=== PATIENT | male | born 1970 | race Two or more races ===

== ENCOUNTER 2023-10-21 13:42 | Outpatient (REF) | payer SELFPAY ==
[2023-10-21 17:20] LABS: Alanine Aminotransferase 13 U/L (0-40); Alkaline Phosphatase 66 U/L (39-117); Anion Gap 12 (12-20); Aspartate Amino Transferase 18 U/L (5-37); Bilirubin Direct 0.2 mg/dL (0.0-0.5); Bilirubin Total 0.6 mg/dL (0.0-1.0); Blood Urea Nitrogen 11 mg/dL (9-16); Calcium 9.9 mg/dL (8.4-10.2); Carbon Dioxide 25 mmol/L (22-29); Chloride 107 mmol/L (96-108); Cholesterol 147 mg/dL (<200); Estimated Glomerular Filt Rate > 60; Glucose Random 94 mg/dL (60-115); HDL Cholesterol 40 mg/dL (>40); LDL Cholesterol Calculated 87 mg/dL (<100); Potassium 4.5 mmol/L (3.3-5.1); Sodium 139 mmol/L (135-145); Total Protein 6.8 g/dL (6.5-8.0); Triglycerides 104 mg/dL (<150)
[2023-10-22 04:36] LABS: HBS Num1 2.48 mIU/mL (0-7.99); HBc Num1 0.09 S/CO (0.00-0.79); HBsAGNum1 1.16 S/CO (0.00-0.99); Hepatitis B Core Antibody Nonreactive (Nonreactive); ~HepC Num1 0.08 S/CO (0.00-0.79); ~Hepatitis B Surface Antibody NONREACTIVE (Nonreactive); ~Hepatitis C Antibody Nonreactive (Nonreactive)
[2023-10-22 04:39] LABS: Hepatitis A Antibody IgG REACTIVE (Nonreactive); ~Hepatitis A Antibody IgG 12.48 S/CO (0.00-0.99)
[2023-10-22 04:52] LABS: HIV Num 1 1.41 S/CO (0.00-0.99)
[2023-10-22 05:52] LABS: HBsAGNum2 Nonreactive; HBsAGNum3 Nonreactive; HIV AB/AG Nonreactive (Nonreactive); HIV Num 2 0.04 S/CO; HIV Num 3 0.05 S/CO; Hepatitis B Surface Antigen NEGATIVE (Negative)
[2023-10-24 06:39] LABS: TS Negative Control Passed; TS Panel A 0; TS Panel B 0; TS Positive Control Passed; TSpotTB Negative (Negative)
== END 2023-10-21 13:43 | disposition home or self-care (01) ==
LOC: HO.HHCL 13:42
PROVIDERS: Referring Provider Emergency Medicine; Visit Provider General Practice
DX: Z00.00 Encounter for general adult medical examination without abnormal findings (principal); F11.20 Opioid dependence, uncomplicated
CPT/HCPCS: 36415; 80053; 80061; 80076; 82248; 86481; 86592; 86704; 86706; 86708; 86803; 87340; 87389

== ENCOUNTER 2024-03-31 12:50 | Emergency (ER) | payer MEDICAID, SELFPAY ==
[2024-03-31 13:07] VITALS: BP 135/89; PULSE 76; O2SAT 97
[2024-03-31 13:08] VITALS: BP 137/83; PULSE 71; RESP 20; TEMP 36.3; O2SAT 98; BMI 27.0
--- NOTE | 2024-03-31 13:08 | ED.GENADULT ---
HPI - General Adult General Chief complaint: General Medical Stated complaint: inhaler not working Time Seen by Provider: 03/31/24 13:13 Source: patient, EMS and RN notes reviewed Mode of arrival: EMS Limitations: no limitations History of Present Illness ED Provider: Ena Cruz PA-C HPI narrative: This is a 53-year-old male, with a history of asthma, who presents emergency department for evaluation of inhaler not working. Patient states that while he was walking he was attempting to use his inhaler in his hand inhaler was not working as his inhaler was frozen. He went into a store and he was able to use his inhaler however the ambulance was called. States that he took the ambulance as he needed to have a ride. He states that he is not having any shortness of breath, chest pain, cough, dizziness, blurred vision, abdominal pain, nausea, vomiting or diarrhea. He was feeling well. No other complaints or concerns at this time. MD complaint: Malfunctioned Inhaler Relieving factors: none Exacerbating factors: none Associated symptoms: denies other symptoms Treatments prior to arrival: none Related Data Allergies Allergy/AdvReac Type Severity Reaction Status Date / Time No Known Allergies Allergy Verified 03/31/24 13:12 Review of Systems Review of Systems: Yes all other systems are reviewed and are negative [facility] Past Medical History Attestation statement: The following information was validated with the patient. Social History Social History Advance Directives: No Advance Directives Information Provided: No Do you have a plan to hurt others: No Plan Physical Exam ED Vital Signs: Vital Signs - 24 hr 03/31/24 13:08 03/31/24 13:19 Temperature 97.4 F 97.4 F Pulse Rate 71 71 Respiratory Rate 20 20 Blood Pressure 137/83 137/83 Pulse Oximetry 98 98 Oxygen Delivery Method Room Air Room Air BMI result Body Mass Index 27.0 Const Other: General: Awake, alert, and oriented X3. No acute distress. HEENT: Normal inspection CVS: Normal heart rate and rhythm. Pulses normal. Respiratory: No respiratory distress. Lungs are clear to auscultation bilaterally. Skin: Warm, dry, no rashes noted to exposed skin. Normal skin color. Normal skin turgor. Extremities: Normal to inspection Neuro: Oriented X 3. No motor deficit. No sensory deficit. Medical Decision Making Medical Decision Making [facility] Narrative: This is a 53-year-old male who presents emergency department with complaints of malfunction inhaler. Patient states that while he was walking he felt short of breath, and attempted to use his inhaler however states that the it was frozen. Lungs are clear to auscultation bilaterally, vital signs within normal limits. He has no current complaints. He was feeling well and would like to be discharged home. Given that he is feeling well, has no current shortness for breath, and that his reason for taking the ambulance was for a ride, and his inhaler was frozen, no indication for any further workup. Given strict return precautions. He understands and agrees with plan. Patient stable for discharge Differential Diagnosis Differential Diagnoses: The differential diagnosis associated with the presentation includes Asthma exacerbation, URI, medication refill Discharge Plan Discharge Clinical Impression: Asthma Patient Disposition: Home, Self-Care Instructions: Asthma (ED) Additional Instructions: You were seen in the emergency department as your inhaler was not working. Your vital signs were normal, your lungs are clear. You have no current complaints. Please follow-up with your primary care physician. If any new or worsening symptoms occur including but not limited to chest pain or shortness for breath, please seek emergent care. Interventions: ED Discharge Assessment Last Done: 03/31/24 13:19 Discharge Date/Time: 03/31/24 13:26 Print Language: Citizen [place]
[2024-03-31 13:19] VITALS: BP 137/83; PULSE 71; RESP 20; TEMP 36.3; O2SAT 98
--- OUTSIDE RECORDS SUMMARY | 2024-03-31 14:16 | XMS_ITS | Encounter Summary ---
Author Organization [employer] Address [address] [place] [address] Care Team Providers Care Dependency Program Director Name Role Phone Ely Sánchez MD Primary Care Provider [phone] Encounter Details Date Type Department Care Team (Latest Contact Info) Description 03/23/2024 Travel Social History Tobacco Use Types Packs/Day Years Used Date Smoking Tobacco: Former Cigarettes Passive Smoke Exposure: Current Smokeless Tobacco: Never Alcohol Use Standard Drinks/Week Comments Never 0 (1 standard drink = 0.6 oz pur e alcohol) Depression Answer Date Recorded Patient Health Questionnaire-9 Score 21 10/21/2023 Patient Health Questionnaire-9 Score 21 10/21/2023 Last PHQ-9: Questionnaire Data Not on file 0 10/21/2023 Housing Stability Answer Date Recorded What is your housing situation today? I have [employer] 10/02/[address] you li ve. Do you have problems with any of the following? None of the above 10/02/2023 Food Insecurity Answer Date Recorded Within the past 12 months, y ou worried that your food would run out before you got money to buy more: Never True 10/02/2023 Within the past 12 months,th e food you bought just didn't last and you didn't have enough money to get more: Never True Transportation Answer Date Recorded In the past 12 months, has l ack of transportation kept you from medical appts, meetings, work or from getting things needed for daily living? No 10/02/2023 Utilities Answer Date Recorded In the past 12 months, has t he electric, gas, oil or water company threatened to shut off services in your home? No 10/02/2023 Depression Answer Date Recorded Patient Health Questionnaire-2 Score 5 10/21/2023 Internet Access Answer Date Recorded Internet Access Q1 I am not sure 10/21/2023 Internet Access Q2 Not on file 10/21/2023 Sex and Gender Information Value Date Recorded Sex Assigned at Male 07/18/2023 3:40 PM EDT Legal Sex Male 1:39 PM EDT Gender Identity Male 07/18/2023 3:40 PM EDT Sexual Orientation Straight 07/18/2023 3: 41 PM EDT documented as of this encounter Plan of Treatment Upcoming Encounters Date Type Department Care Team (Late st Contact Info) Description 04/20/2024 1:00 PM EDT Office Visit [facility] [address] [place] [address] Jairo Valenzuela MD [address] [place] [address] documented as of this encounter Visit Diagnoses Not on filedocumented in this encounter Additional Health Concerns Assessment Noted Time PHQ-9 Depression Total Score: 21 024 1:23 PM EDT documented as of this encounter Care Teams Dependency Program Director Relationship Specialty Start Date End Date Ely Sánchez MD [address] [place] [address] PCP - General Family Medicine 10/21/23 documented as of this encounter
--- OUTSIDE RECORDS SUMMARY | 2024-03-31 14:16 | XMS_ITS | Encounter Summary ---
Author Organization [employer] Address [address] [facility] 7t [place] [address] Care Team Providers Care Market Developer Name Role Phone Ely Sánchez MD Primary Care Provider [phone] Reason for Visit * Reason Comments Pain With Bowel movements Encounter Details Date Type Department Care Team ([facility] st Contact Info) Description 03/27/2024 1:30 PM EST Office Visit [facility] MED[facility]INE [address] [place], [place] [id number] Ely Sánchez MD [address] [place] [address] Social History Tobacco Use Types Packs/Day Years Used Date Smoking Tobacco: Former Cigarettes Passive Smoke Exposure: Current Smokeless Tobacco: Never Tobacco Cessation:Counseling Given: Not Answered Alcohol Use Standard Drinks/Week Comments Never 0 (1 standard drink = 0.6 oz pur e alcohol) Depression Answer Date Recorded Patient Health Questionnaire-9 Score 10/21/2023 Patient Health Questionnaire-9 Score 10/21/2023 Last PHQ-9: Questionnaire Data Not on [...] PM EDT documented as of this encounter Last Filed Vital Signs Vital Sign Reading Time Taken Comments Blood Pressure 146/79 03/27/2024 1:23 PM EST Pulse 73 03/27/2024 1:23 PM EST Temperature 36.8 ??C (98.2 ??F) 03/27/2024 1:23 PM ES T Respiratory Rate 16 03/27/2024 1:23 PM EST Oxygen Saturation 97% 03/27/2024 1:23 PM EST Inhaled Oxygen Concentration - - Weight 89.4 kg (197 lb) 03/27/2024 1:23 PM EST Height 177.8 cm (5' 10 ) 03/27/2024 1:23 PM EST Body Mass Index 28.27 03/27/2024 1:23 PM EST documented in this encounter Plan of Treatment Upcoming Encounters Date Type Department Care Team (Late st Contact Info) Description 04/20/2024 1:00 PM EDT Office Visit [facility] [address] [place] [address] Jairo Valenzuela MD [address] [place] [address] documented as of this encounter Visit Diagnoses Not on filedocumented in this encounter Additional Health Concerns Assessment Noted Time PHQ-9 Depression Total Score: 21 024 1:23 PM EDT documented as of this encounter Care Teams Market Developer Relationship Specialty Start Date End Date Ely Sánchez MD [address] [place] [id number] PCP - General Family Medicine 10/21/23 documented as of this encounter
--- OUTSIDE RECORDS SUMMARY | 2024-03-31 14:16 | XMS_ITS | Encounter Summary ---
Author Organization [employer] Address [address] [facility] 7t [place] [address] Care Team Providers Care Program Advocate Name Role Phone Ely Sánchez MD Primary Care Provider [phone] Reason for Visit * Reason Onset Date Comments Telephone Call 03/24/2024 Encounter Details Date Type Department Care Team ([facility] st Contact Info) Description 03/24/2024 Telephone [facility] MEDICINE [address] [place], [place] [phone] Ely Sánchez MD [address] [place] [address] Telephone Call Social History Tobacco Use Types Packs/Day Years [...] PM EDT documented as of this encounter Miscellaneous Notes * Telephone Encounter - Shania Francisco RN - 03/24/2024 10:54 AM EST Call returned to patient. Logan reports he would like to schedule an appt with PCP Dr. Sánchez as he is having pain with bowel movements. He reports he had a colonoscopy several years ago, where a few polyps were removed. He thinks he is due to have another colonoscopy. Appt scheduled with PCP 03/27/2024 at 1:30 PM. Patient verbalizes understanding and agreement with plan of care at thi [place] [id number] Chi * Telephone Encounter - Caro Orellana - 03/24/2024 9:17 AM EST Pt walked in requesting to speak with pcp as he is concerned he may have prostate cancer and would like to discuss with pcp. Patient states he had previously had polups removed but he feels them growing back and is becoming more uncomfortable day to day. [phone] pts cell documented in this encounter Plan of Treatment Upcoming Encounters Date Type Department Care Team (Late st Contact Info) Description 04/20/2024 1:00 PM EDT Office Visit [facility] MEDICINE [address] [place] [address] Jairo Valenzuela MD [address] [place] [address] documented as of this encounter Visit Diagnoses Not on filedocumented in this encounter Additional Health Concerns Assessment Noted Time PHQ-9 Depression Total Score: 21 024 1:23 PM EDT documented as of this encounter Care Teams Program Advocate Relationship Specialty Start Date End Date Ely Sánchez MD [address] [place] [address] PCP - General Family Medicine 10/21/23 documented as of this encounter
--- OUTSIDE RECORDS SUMMARY | 2024-03-31 14:16 | XMS_ITS | Encounter Summary ---
Author Organization [employer] Address [address] [facility] [address] 7t [place] [address] Care Team Providers Care Metal Or Wood Blocker Name Role Phone Ely Sánchez MD Primary Care Provider [phone] Encounter Details Date Type Department Care Team (Late st Contact Info) Description 12/02/2023 Orders Only [facility] MED[facility] [address] [place] [address] Katrin Lieberman, RN Social History Tobacco Use Types Packs/Day Years [...] Description 04/20/2024 1:00 PM EDT Office Visit [facility] MED[facility] [address] [place] [address] Jairo Valenzuela MD [address] [place] [address] documented as of this encounter Visit Diagnoses Not on filedocumented in this encounter Additional Health Concerns Assessment Noted Time PHQ-9 Depression Total Score: 21 024 1:23 PM EDT documented as of this encounter Care Teams Metal Or Wood Blocker Relationship Specialty Start Date End Date Ely Sánchez MD [address] [place] [address] PCP - General Family Medicine 10/21/23 documented as of this encounter
--- OUTSIDE RECORDS SUMMARY | 2024-03-31 14:16 | XMS_ITS | Encounter Summary ---
Author Organization [employer] Address [address] Floor [place] [id number] Care Team Providers Care Director Of Anesthesia Services Name Role Phone Ely Sánchez MD Primary Care Provider [phone] Reason for Visit * Reason Comments OBAT Encounter Details Date Type Department Care Team (Latest Contact Info) Description 03/23/2024 1:00 PM EST Office Visit [facility] [address] [place] [address] Jairo Valenzuela MD [address] [place] [address] Uncomplicated opioid dependence (CMS/HCC) (Primary Dx) Social History Tobacco Use Types Packs/Day Years [...] PM EDT documented as of this encounter Progress Notes * Jairo Valenzuela MD - 03/23/2024 1:00 PM EST Subjective Patient ID: Logan Solorzano is a 53 y.o. male. HPI Patient on current Suboxone dose of 8/2 mg (decreased on 09/25/23 from 16/4) on a 4 week schedule. Patient has been in the program for 6 months. Induction date: 09/02/23. LFTs done 10/21/23. Patient actively enrolled in behavioral health services, therapist Nalini. SINDHU CHAHAL reviewed by provider. PCP: Dr. Sánchez, last seen 10/21/23 Smoking status: current Logan is here with his sister. He is in [employer] [facility], and enjoys the program very much,especially playing [employer]. He stated smoking again, 3 cigarettes/day, has nicotine patches at home. Discussed Sublocade; prefers to stay on Suboxone at current dose. Has mild constipation, used Colace and senna without relief. Tried bisacodyl, which was effective. Today prescribed bisacodyl. Lives with sister. Not employed. The following portions of the chart were reviewed this encounter and updated as appropriate: Review of Systems Constitutional: Negative for fever. Respiratory: Negative for shortness of breath. Cardiovascular: Negative for chest pain. Gastrointestinal: Negative for abdominal pain. Skin: Negative for rash. Neurological: Negative for headaches. Objective Physical Exam Vitals and nursing note reviewed. Constitutional: Appearance: Normal appearance. HENT: Head: Normocephalic and atraumatic. Nose: Nose normal. Eyes: Conjunctiva/sclera: Conjunctivae normal. Pupils: Pupils are equal, round, and reactive to light. Pulmonary: Effort: Pulmonary effort is normal. Skin: General: Skin is warm and dry. Neurological: Mental Status: He is alert. Gait: Gait is intact. Psychiatric: Mood and Affect: Mood and affect normal. Behavior: Behavior normal. Procedures Assessment/Plan Diagnoses and all orders for this visit: Uncomplicated opioid dependence (CMS/HCC) Recovery support, harm reduction (including Narcan) and behavioral health attendance reviewed. Continue Suboxone 8/2 mg; will increase visit interval to 8 week schedule if doing well at next visit. Prescribed bisacodyl. documented in this encounter Plan of Treatment Upcoming Encounters Date Type Department Care Team (Late st Contact Info) Description 04/20/2024 1:00 PM EDT Office Visit [facility] [address] [place] [address] Jairo Valenzuela MD [address] [place] [address] documented as of this encounter Procedures Procedure Name Priority Date/Time Associated Diagnosis Comments POCT DAVID-14 URINE DRUG SCREEN Routine 03/23/2024 1:17 PM EST Uncomplicated opioid dependence (CMS/HCC) documented in this encounter Results * POCT DAVID-14 Urine Drug Screen (03/23/2024 1:17 PM EST) THC Negative Cocaine Screen, Urine Negative Opiate Screen, Urine Negative Methamphetamine Screen Urine Negative Amphetamine Screen, Urine Negative Benzodiazepines Screen, Urine Negative Barbiturate Screen, Urine Negative Methadone Screen, Urine Negative Buprenophine Screen, Urine Positive TCA, Urine Negative MDMA Urine Negative ng/mL Oxycodone Screen, Urine Negative Phencyclidine (PCP), Urine Negative Propoxyphene, Urine Negative Fentanyl, Urine Negative Urine Urine specimen obtained by clean catch procedure / Unknown 03/23/2024 1:17 PM EST Jairo Valenzuela MD POINT OF CARE TEST ENTER/EDIT OR DERABLES Final Result documented in this encounter Visit Diagnoses Diagnosis Uncomplicated opioid dependence (CMS/HCC)- Primary documented in this encounter Additional Health Concerns Assessment Noted Time PHQ-9 Depression Total Score: 21 024 1:23 PM EDT documented as of this encounter Care Teams Director Of Anesthesia Services Relationship Specialty Start Date End Date Ely Sánchez MD [address] [place] [address] PCP - General Family Medicine 10/21/23 documented as of this encounter
--- OUTSIDE RECORDS SUMMARY | 2024-03-31 14:16 | XMS_ITS | Encounter Summary ---
Author Organization [employer] Address [address] [place] [address] Care Team Providers Care Import/Export Freight Forwarder Name Role Phone Ely Sánchze MD Primary Care Provider [phone] Encounter Details Date Type Department Care Team (Latest Contact Info) Description 03/27/2024 Travel Social History Tobacco Use Types Packs/Day [...] Description 04/20/2024 1:00 PM EDT Office Visit [facility] [address] [place] [address] Jairo Valenzuela MD [address] [place] [address] documented as of this encounter Visit Diagnoses Not on filedocumented in this encounter Additional Health Concerns Assessment Noted Time PHQ-9 Depression Total Score: 21 024 1:23 PM EDT documented as of this encounter Care Teams Import/Export Freight Forwarder Relationship Specialty Start Date End Date Ely Sánchez MD [address] [place] [address] PCP - General Family Medicine 10/21/23 documented as of this encounter
--- OUTSIDE RECORDS SUMMARY | 2024-03-31 14:16 | XMS_ITS | Encounter Summary ---
Author Organization [employer] Address [address] [place] [address] Care Team Providers Care Manufacturing Team Leader Name Role Phone Ely Sánchez MD Primary Care Provider [phone] Encounter Details Date Type Department Care Team (Late st Contact Info) Description 12/02/2023 Orders Only [facility] MEDICINE [address] [place] [address] Katrin Lieberman, RN Encounter for immunization Social History Tobacco Use Types Packs/Day Years [...] Description 04/20/2024 1:00 PM EDT Office Visit [facility] MED[facility] [address] [place] [address] Jairo Valenzuela MD [address] [place] [address] documented as of this encounter Visit Diagnoses Diagnosis Encounter for immunization documented in this encounter Additional Health Concerns Assessment Noted Time PHQ-9 Depression Total Score: 21 024 1:23 PM EDT documented as of this encounter Care Teams Manufacturing Team Leader Relationship Specialty Start Date End Date Ely Sánchez MD [address] [place] [id number] PCP - General Family Medicine 10/21/23 documented as of this encounter
--- OUTSIDE RECORDS SUMMARY | 2024-03-31 14:16 | XMS_ITS | Encounter Summary ---
Author Organization [employer] Address [address] [place] [address] Care Team Providers Care Mortgage Or Loan Underwriter Name Role Phone Ely Sánchez MD Primary Care Provider [phone] Reason for Visit * Reason Onset Date Comments Med Refill 03/17/2024 Encounter Details Date Type Department Care Team (Late st Contact Info) Description 03/17/2024 Refill [facility] [address] [place] [address] Katrin Lieberman RN Uncomplicated opioid dependence (CMS/HCC) Social History Tobacco Use Types Packs/Day Years [...] Description 04/20/2024 1:00 PM EDT Office Visit [facility] [address] [place] [address] Jairo Valenzuela MD [address] [place] [address] documented as of this encounter Visit Diagnoses Diagnosis Uncomplicated opioid dependence (CMS/HCC) documented in this encounter Additional Health Concerns Assessment Noted Time PHQ-9 Depression Total Score: 21 024 1:23 PM EDT documented as of this encounter Care Teams Mortgage Or Loan Underwriter Relationship Specialty Start Date End Date Ely Sánchez MD [address] [place] [address] PCP - General Family Medicine 10/21/23 documented as of this encounter
--- OUTSIDE RECORDS SUMMARY | 2024-03-31 14:16 | XMS_ITS | Clinical Summary ---
Author Organization [employer] Address [address] [facility] [place] [address] Care Team Providers Care Real Estate Marketing Coordinator Name Role Phone Ely Sánchez MD Primary Care Provider [phone] Allergies No known active allergies Medications * This document contains information received from the source organization and may not represent a complete record from that organization. naloxone (Narcan) 4 mg/0.1 mL nasal sprayIndications: Uncomplicated opioid dependence (CMS/HCC) Administer 1 spray (4 mg) into affected nostril(s) if needed for opioid reversal. May repeat every 2-3 minutes if needed, alternating nostrils, until medical assistance becomes available. 2 each 024 2024 Active nicotine polacrilex (Commit) 4 MG lozenge Dissolve 1 lozenge (4 mg) in the mouth every 2 (two) hours if needed for smoking cessation. 100 lozenge Active OLANZapine zydis (ZyPREXA) 5 MG disintegrating tablet Take 5 mg by mouth if needed in the morning and at bedtime. Active melatonin 10 MG tablet Take 10 mg by mouth at bedtime. Active lithium ER (Lithobid) 300 MG 12 hr tablet Take 600 mg by mouth at bedtime. Active hydrOXYzine HCl (Atarax) 50 MG tablet Take 50 mg by mouth if needed in the morning and at bedtime. Active gabapentin (Neurontin) 300 MG capsule Take 600 mg by mouth at bedtime. Active cholecalciferol (Vitamin D-[address]) 25 MCG (1000 UT) tablet Take 1,000 Units by mouth Once per day. Active benztropine (Cogentin) 1 MG tablet Take 1 mg by mouth at bedtime. Active ARIPiprazole (ABILIFY MAINTENA IM) Inject into the muscle. Active docusate sodium (Colace) 100 MG capsuleIndication s:Uncomplicated opioid dependence (CMS/HCC) Take 1 capsule (100 mg) by mouth if needed in the morning and at bedtime for constipation. 60 capsule 3 024 2024 Active albuterol 108 (90 Base) MCG/ACT inhalerIndication s:Mild persistent asthma, unspecified whether complicated Inhale 2 puffs every 4 (four) hours if needed for wheezing. 18 g 11 024 2024 Active Arnuity Ellipta 100 MCG/ACT inhaler INHALE 1 PUFF BY MOUTH EVERY DAY AT THE SAME TIME RINSE MOUTH AFTER USING. RINSE MOUTH AFTER USING.. DO NOT SWALLOW. 30 each 11 Active Buprenorphine HCl-Naloxone HCl (Suboxone) 8-2 MG SL filmIndications:U ncomplicated opioid dependence (CMS/HCC) Place 1 Film under the tongue Once per day for 28 days. 28 Film 025 2024 Active bisacodyl (Dulcolax) 5 MG EC tablet Take 1 tablet (5 mg) by mouth if needed each day for constipation. Do not crush, chew, or split. 30 tablet 3 025 2025 Active hydrocortisone (Anusol-HC) 2.5 % rectal cream Insert into the rectum 2 times daily. 28 g 3 Active Buprenorphine HCl-Naloxone HCl (Suboxone) 8-2 MG SL filmIndications:U ncomplicated opioid dependence (CMS/HCC) Place 1 Film under the tongue Once per day for 28 days. 28 Film 025 2024 Discontinued(R eorder (will not trigger notification to Pharmacy)) Active Problems Problem Noted Date Diagnosed Date Mild persistent asthma 02/10/2024 Assessment & Plan (02/10/2024 10:43 AM EST): Restart ICS controller BID, DWIGHT prn Return to clinic precautions Hallucinations 09/13/2023 Assessment & Plan (02/10/2024 10:43 AM EST): Controlled with injectable Abilify Verbal auditory hallucinations 09/13/2023 Opioid use disorder 09/03/2023 Assessment & Plan (02/10/2024 10:44 AM EST): On Suboxone at [facility] Provider Dr. Valenzuela Assessment & Plan (10/30/2023 5:30 AM EDT): - stage of change: Action - Utox review: bup only since he came to the program - Overdose risk: high, Hx previous overdose, depression/anxiety / schizophrenia, Hx mixed substance use - Continue current recovery support - Continue current recovery effort - Reviewed harm reduction and overdose prevention Assessment & Plan (10/02/2023 1:32 PM EDT): - stage of change: Action - Utox review: bup only since he came to the program - Overdose risk: high, Hx previous overdose, depression/anxiety / schizophrenia, Hx mixed substance use - Continue current recovery support - Continue current recovery effort - Reviewed harm reduction and overdose prevention Stimulant use disorder 09/03/2023 Severe episode of recurrent major depressive disorder, with psychotic features 09/03/2023 Generalized anxiety disorder with panic attacks 09/03/2023 Assessment & Plan (02/10/2024 10:43 AM EST): Under care of Tobacco dependence 09/02/2023 Assessment & Plan (02/10/2024 10:45 AM EST): - quit day on 10/02/23, has not smoked since then - continue NRT Assessment & Plan (10/30/2023 10:57 AM EDT): - stage of change: action - quit day on 10/02/23, has not smoked since then - continue NRT Assessment & Plan (10/02/2023 1:33 PM EDT): - stage of change: action - started using nicotine patch today Schizophrenia, unspecified 07/19/2023 Assessment & Plan (02/10/2024 10:45 AM EST): Continue Abilify injections, Teresita His sister will molded goods spot picker other psych medications today Reviewed CRISIS and ER for any SI Assessment & Plan (07/29/2023 10:21 AM EDT): During [facility] Consult Logan presenting with Altered sensory perception, Unusual thoughts, Trouble processing and with decision making, Difficulty with social interactions, and Difficulty with ADLs, visual and auditory hallucinations; for a period of 18+ mo, for all symptoms in the context of lack of MH services, lack of social support and difficulty reconnecting with the community after being released from [facility] . During today's consult, Logan reports increase of sxs due to be out of his pych medication. He previously had psychiatry services while being incarcerated in [place] and carries a diagnosis of Schizophrenia. Then, he was transferred to [place] but didn't have a treatment plan to follow for MH services. Currently staying with his sister, but family can't provide long-term housing. Due to lack of OP supports and medication, Logan is showing increase of sxs that include psychosis' sxs are highly impacting his social, occupational and other areas of functioning. More information and evaluation needed to provide official diagnosis. Pt was provided with open-ended questions, active listening and validation of emotions. PLAN: (check all that apply) Behavioral Health Integration Plan Patient Self Plan Patient to reach out to [facility] as needed Pt was self-referred to [facility] for a psychiatry evaluation with options to look into respite if spots are available. Information provided to pt. Housing insecurity 07/19/2023 Assessment & Plan (07/29/2023 10:21 AM EDT): During [facility] Consult Logan presenting with Altered sensory perception, Unusual thoughts, Trouble processing and with decision making, Difficulty with social interactions, and Difficulty with ADLs, visual and auditory hallucinations; for a period of 18+ mo, for all symptoms in the context of lack of MH services, lack of social support and difficulty reconnecting with the community after being released from [facility] . During today's consult, Logan reports increase of sxs due to be out of his pych medication. He previously had psychiatry services while being incarcerated in [place] and carries a diagnosis of Schizophrenia. Then, he was transferred to [place] but didn't have a treatment plan to follow for MH services. Currently staying with his sister, but family can't provide long-term housing. Due to lack of OP supports and medication, Logan is showing increase of sxs that include psychosis' sxs are highly impacting his social, occupational and other areas of functioning. More information and evaluation needed to provide official diagnosis. Pt was provided with open-ended questions, active listening and validation of emotions. PLAN: (check all that apply) Behavioral Health Integration Plan Patient Self Plan Patient to reach out to [facility] as needed Pt was self-referred to [facility] for a psychiatry evaluation with options to look into respite if spots are available. Information provided to pt. Encounters Date Type Department Care Team Description 03/27/2024 1:30 PM EST Office Visit [address] [address] Ely Sánchez MD 03/27/2024 Travel 03/24/[address] [address] Ely Sánchez MD Telephone Call 03/23/2024 1:00 PM EST Office Visit [address] [address] Jairo Valenzuela MD Uncomplicated opioid dependence (CMS/HCC) (Primary Dx) 03/23/2024 Travel 03/17/[address] [address] Katrin Lieberman RN Uncomplicated opioid dependence (CMS/HCC) 02/24/2024 2:00 PM EST Clinical Support [address] [address] Katrin Lieberman RN Uncomplicated opioid dependence (CMS/HCC) (Primary Dx) 02/24/2024 Travel 02/17/2024 Refill [facility] [place] [address] Katrin Lieberman RN Uncomplicated opioid dependence (CMS/HCC) 02/07/2024 2:15 PM EST Office Visit [address] [address] Ely Sánchez MD Mild persistent asthma, unspecified whether complicated (Primary Dx); Generalized anxiety disorder with panic attacks; Hallucinations; Opioid use disorder; Schizophrenia, unspecified type (CMS/HCC); Severe episode of recurrent major depressive disorder, with psychotic features (CMS/HCC); Tobacco dependence; Encounter for immunization 02/07/2024 Refill [facility] [address] [place] [address] Ely Sánchez MD 02/07/2024 Travel 01/29/2024 Patient Outreach [facility] [address] [place] [phone] Ely Sánchez MD Pre-visit Planning (SDOH screening completed on 10/21/2023) 01/27/2024 1:15 PM EST Office Visit [address] [address] Jairo Valenzuela MD Uncomplicated opioid dependence (CMS/HCC) (Primary Dx) 01/27/2024 Travel 01/20/2024 Refill [facility] [address] [place] [phone] Katrin Lieberman RN Uncomplicated opioid dependence (CMS/HCC) 01/13/2024 1:45 PM EST Office Visit [address] [address] Jairo Valenzuela MD Uncomplicated opioid dependence (CMS/HCC) (Primary Dx) 01/13/2024 Travel 01/07/2024 Refill [facility] [address] [place] [phone] Katrin Lieberman RN Uncomplicated opioid dependence (CMS/HCC) 12/30/2023 1:45 PM EST Clinical Support [address] [address] Katrin Lieberman RN Uncomplicated opioid dependence (CMS/HCC) (Primary Dx) 12/30/2023 Travel from Last 3 Months Immunizations Name Administration Dates Next Due HepB-CpG 12/02/2023,10/23/2023 11/20/2023 Influenza, seasonal, injectable, preservative fr ee 02/07/2024 Social History Tobacco Use Types Packs/Day Years [...] Orientation Straight 07/18/2023 3: 41 PM EDT Last Filed Vital Signs Vital Sign Reading [...] Mass Index 28.27 03/27/2024 1:23 PM EST Plan of Treatment Upcoming Encounters Date Type Department Care Team (Late st Contact Info) Description 04/20/2024 1:00 PM EDT Office Visit [facility] [address] [place] [address] Jairo Valenzuela MD [address] [place] [address] Health Maintenance Due Date Last Done Comments CT Colonography 1969 Colonoscopy 1969 Colorectal Cancer Screening 1969 FIT DNA/Cologuard 1969 FIT 1969 FOBT 1969 Sigmoidoscopy 1969 DTaP/Tdap/Td Vaccines (1 - Tdap) 1988 Hepatitis A Vaccines (1 of 2 - Risk 2-dose series) 1988 Pneumococcal Vaccine: 50+ Years (1 of 2 - PCV) 1988 Zoster Vaccines (1 of 2) 10/07/2019 COVID-19 Vaccine (2023-2 5 season) 2023 Depression Monitoring (PHQ-9) 04/19/2024, 10/21/2023 Diabetes: Hemoglobin A1C 09/14/2024 09/15/2023 Depression Screening 10/20/2024 10/21/2023, 10/21/2023 SDOH Screening 10/20/2024 10/21/2023 Alcohol/Substance Use Screening 02/06/2025 02/07/2024 Tobacco Screening 03/27/2025 03/27/2024 Lipid Panel 10/20/2028 10/21/2023 RSV Patients and Patients Aged 60 years or older (1 - 1-dose 75+ series) 2044 HIV Screening Completed 10/21/2023 Hepatitis C Screening Completed 10/21/2023 Hepatitis B Vaccines Completed 12/02/2023, 10/23/2023 Influenza Vaccine Completed 02/07/2024 HIB Vaccines Aged Out No longer eligi ble based on patient's age to complete this topic HPV Vaccines Aged Out No longer eligi ble based on patient's age to complete this topic IPV Vaccines Aged Out No longer eligi ble based on patient's age to complete this topic Meningococcal Vaccine Aged Out No di nishant eligible based on patient's age to complete this topic RSV under 20 months Aged Out No longe r eligible based on patient's age to complete this topic Rotavirus Vaccines Aged Out No longer eligible based on patient's age to complete this topic Procedures Procedure Name Priority Date/Time Associated Diagnosis Comments POCT DAVID-14 URINE DRUG SCREEN Routine 03/23/2024 1:17 PM EST Uncomplicated opioid dependence (CMS/HCC) POCT DAVID-14 URINE DRUG SCREEN Routine 02/24/2024 2:07 PM EST Uncomplicated opioid dependence (CMS/HCC) POCT DAVID-14 URINE DRUG SCREEN Routine 01/27/2024 1:27 PM EST Uncomplicated opioid dependence (CMS/HCC) POCT DAVID-14 URINE DRUG SCREEN Routine 01/13/2024 2:01 PM EST Uncomplicated opioid dependence (CMS/HCC) POCT DAVID-14 URINE DRUG SCREEN Routine 12/30/2023 2:07 PM EST Uncomplicated opioid dependence (CMS/HCC) HEPATITIS C AB W/REFL TO HCV RNA, QN, PCR Routine 10/21/2023 1:51 PM EDT Uncomplicated opioid dependence (CMS/HCC) HIV 1/2 ANTIGEN/ANTIBODY, FOURTH GENERATION W/RFL Routine 10/21/2023 1:51 PM EDT Uncomplicated opioid dependence (CMS/HCC) LIPID PANEL, STANDARD Routine 10/21/2023 1:51 PM EDT Routine physical examination from Last 3 Months or Most Recently Relevant to Health Maintenance Results * POCT DAVID-14 Urine Drug Screen (03/23/2024 1:17 PM EST) Only the most recent of5 resultswithin the time period is included. THC Negative Cocaine Screen, Urine Negative Opiate [...] procedure / Unknown 03/23/2024 1:17 PM EST us Jairo Valenzuela MD POINT OF CARE TEST ENTER/EDIT OR DERABLES Final Result * Hepatitis C Antibody with Reflex to HCV, RNA, Quantitative, Real-Time PCR (10/21/2023 1:51 PM EDT) [facility] Hepatitis C Antibody Nonreactive Nonreactive [facility] Comment:Antibodies to HCV no t detected; does not exclude early acuteHCV infection. Blood Venous blood specimen / Unknown 10/21/2023 1:51 PM EDT 10/21/2023 4:28 PM EDT us Jairo Valenzuela MD LAB BLOOD ORDERABLES Final Resul t [facility] [address] [place] [phone] * HIV-1/2 Antigen and Antibodies, Fourth Generation, with Reflexes (10/21/2023 1:51 PM EDT) [facility] HIV AB/AG Nonreactive Nonreactive [facility] Comment:HIV-1 p24 Ag and/or HIV-1/HIV-2 Ab not detected.A test result that is nonreactive does not exclude thepossibility of exposure to or infection with HIV-1 and/orHIV-2. Nonreactive results in this assay for individualswith prior exposure to HIV-1 and/or HIV-2 may be due toantigen and antibody levels that are below the limit ofdetection of this assay.The [employer] HIV Ag/Ab Combo assay result andsupplemental assay results should be interpreted inconjunction with the patient's clinical presentation,history and other laboratory results. If the results areinconsistent with clinical evidence, additional testing issuggested to confirm the result. Blood Venous blood specimen / Unknown 10/21/2023 1:51 PM EDT 10/21/2023 4:28 PM EDT Jairo Valenzuela MD LAB BLOOD ORDERABLES Final Resul t Performing Organization Address [facility] Co de Phone Number [facility] [address] [place] [phone] * (ABNORMAL) Lipid Panel, Standard (10/21/2023 1:51 PM EDT) Triglycerides 104 <150 mg/dL [facility] Comment:Desirable Triglyceri de: less than 150 mg/dLBorderline High Triglyceride 150-199 mg/dLHigh Triglyceride: 200-499 mg/dLVery High Triglyceride: greater than or equal to 5OO mg/dL Cholesterol 147 <200 mg/dL [facility] Comment:Desirable Cholestero l: less than 200 mg/dLBorderline High Cholesterol: 200-239 mg/dLHigh Cholesterol: greater than 239 mg/dL LDL Cholesterol Calculated 87 <100 mg/dL [facility] Comment:Desirable LDL: less than 100 mg/dLNear Optimal/Above Optimal LDL: 110- 129 mg/dLBorderline High LDL: 130-159 mg/dLHigh LDL: 160-189 mg/dLVery High LDL: greater than or equal to 190 mg/dL HDL Cholesterol 40(L) >40 mg/dL [facility] Comment:Desirable HDL: great er than 40 mg/dL Note: This HDL assay may give artificially low results in patients with liver disease. Blood Venous blood specimen / Unknown 10/21/2023 1:51 PM EDT 10/21/2023 4:28 PM EDT us Ely Sánchez MD LAB BLOOD ORDERABLES Final Res ult Performing Organization Address [facility]/ZIP Co de Phone Number [facility] [address] [place] [phone] from Last 3 Months or Most Recently Relevant to Health Maintenance Insurance [facility] C3 Care Teams Real Estate Marketing Coordinator Relationship Specialty Start Date End Date Ely Sánchez MD [address] [place] [address] PCP - General Family Medicine 10/21/23
== END 2024-03-31 13:26 | disposition home or self-care (01) ==
LOC: HO.ED 13:20
PROVIDERS: Emergency Provider Emergency Medicine Emergency Medical Services
DX: J45.909 Unspecified asthma, uncomplicated (principal); R06.02 Shortness of breath
CPT/HCPCS: 99282

== ENCOUNTER 2024-09-14 14:58 | Outpatient (REF) | payer MEDICAID, SELFPAY ==
[2024-09-14 17:15] LABS: Hematocrit 39.7 % (42.0-52.0); Hemoglobin 12.9 g/dl (14.0-18.0); Mean Corpuscular HGB Conc 32.5 g/dl (31.0-36.0); Mean Corpuscular Hemoglobin 26.8 pg (27.0-33.0); Mean Corpuscular Volume 82.4 fL (80.0-98.0); NRBC Abs Auto 0.000 X10*3/uL (0.0-0.012); NRBC Pct Auto 0.0 /100WBC (0.0-0.2); Platelet Count 292 X10*3/uL (160-400); Red Blood Count 4.82 X10*6/uL (4.60-5.80); White Blood Count 6.7 X10*3/uL (4.8-10.8)
[2024-09-14 17:41] LABS: Alanine Aminotransferase 28 U/L (0-40); Albumin Level 4.4 g/dL (3.5-5.0); Alkaline Phosphatase 76 U/L (39-117); Anion Gap 11 (12-20); Aspartate Amino Transferase 34 U/L (5-37); Blood Urea Nitrogen 11 mg/dL (9-16); Calcium 9.2 mg/dL (8.4-10.2); Carbon Dioxide 26 mmol/L (22-29); Chloride 108 mmol/L (96-108); Estimated Glomerular Filt Rate > 60; Potassium 4.0 mmol/L (3.3-5.1); Sodium 141 mmol/L (135-145); Total Protein 6.7 g/dL (6.5-8.0)
[2024-09-14 18:11] LABS: Folate 7.2 ng/mL (> or = 4.0); Vitamin B12 288 pg/mL (200-900)
[2024-09-17 00:34] LABS: TS Negative Control Passed; TS Panel A 0; TS Panel B 0; TS Positive Control Passed; TSpotTB Negative (Negative)
[2024-09-18 13:38] LABS: Vitamin D 25-OH, D2 <4 ng/mL; Vitamin D 25-OH, D3 19 ng/mL; Vitamin D 25-OH, Total 19 ng/mL (30-100)
== END 2024-09-14 14:59 | disposition home or self-care (01) ==
LOC: HO.LAB 14:58
PROVIDERS: PCP General Practice; Visit Provider Nurse Practitioner Family
DX: Z00.00 Encounter for general adult medical examination without abnormal findings (principal); K62.5 Hemorrhage of anus and rectum; K21.9 Gastro-esophageal reflux disease without esophagitis; K59.09 Other constipation; R14.0 Abdominal distension (gaseous); E55.9 Vitamin D deficiency, unspecified; R19.7 Diarrhea, unspecified; R10.84 Generalized abdominal pain; Z11.1 Encounter for screening for respiratory tuberculosis
CPT/HCPCS: 36415; 80053; 82306; 82607; 82746; 84443; 85027; 86481; 99212

== ENCOUNTER 2024-10-30 14:03 | Outpatient (AMB) | payer MEDICAID, SELFPAY ==
--- OUTSIDE RECORDS SUMMARY | 2024-10-30 14:10 | XMS_ITS | Encounter Summary ---
Author Organization [employer] Address [address] [place] [address] [address] [place] [address] Care Team Providers Care Propellant Charge Zone Assembler Name Role Phone Ely Sánchez MD Primary Care Provider [phone] Reason for Referral * Consultation (Routine) - Authorized Specialty Diagnoses / Procedures Referred By Willian joseph Referred To Contact Gastroenterology Diagnoses Physical exam Screening for colon cancer Ely Sánchez MD [address] [place] [address] Phone: tel: fax: [facility] [address] [place] [address] [address] [place], [place] Phone: tel: fax: Referral ID Status Reason Start Date Expiration Date Visits Requested Visits Authorized [id number] Authorized Specialty Services Required 09/02/2024 09/02/2025 6 6 Encounter Details Date Type Department Care Team (Late st Contact Info) Description 09/02/2024 Orders Only [facility] [address] [place] [address] Ely Sánchez MD [address] [place] [address] Physical exam (Primary Dx); Screening for colon cancer Social History Tobacco Use Types Packs/Day Years Used Date Smoking Tobacco: Former Cigarettes Passive Smoke Exposure: Current Smokeless Tobacco: Never Alcohol Use Standard Drinks/Week Comments Never 0 (1 standard drink = 0.6 oz pur e alcohol) Depression Answer Date Recorded Patient Health Questionnaire-9 Score 06/30/2024 Patient Health Questionnaire-9 Score 20 06/30/2024 Last PHQ-9: Questionnaire Data Not on file 0 06/30/2024 Housing Stability Answer Date Recorded What is [...] Answer Date Recorded Patient Health Questionnaire-2 Score 3 06/30/2024 Internet Access Answer Date Recorded Internet Access [...] Care Team (Late st Contact Info) Description 11/09/2024 1:45 PM EDT Office Visit [facility] [address] [place] [address] Jairo Valenzuela MD [address] [place] [address] Scheduled Referrals Name Type Priority Associated Diagnoses Order Schedule Referral to Gastroenterology Outpatient Referral Routine Physical exam Screening for colon cancer Expected: 09/02/2024 (Approximate), Expires: 09/02/2025 documented as of this encounter Procedures Procedure Name Priority Date/Time Associated Diagnosis Comments T-SPOT(R).TB Routine 09/14/2024 4:02 PM EDT Physical exam documented in this encounter Results * T-SPOT??.TB (09/14/2024 4:02 PM EDT) T Spot TB Negative Negative [facility] Comment:A negative test resu lt does not exclude the possibilityof exposure to or infection with Mycobacteriumtuberculosis (M. tuberculosis). Patients with recentexposure to TB infected individuals exhibiting anegative T-SPOT.TB result should be considered forretesting within 6 weeks or if other relevant clinicalsymptoms indicate. Results from T-SPOT.TB testing mustbe used in conjunction with each individual'sepidemiological history, current medical status,and results of other diagnostic evaluations.The T-SPOT.TB test is qualitative and results arereported as positive, borderline, or negative, giventhat the test controls perform as expected. In linewith the Centers for Disease Control and Prevention's2010 recommendation to report quantitative measurementsalongside the qualitative result, the laboratoryprovides spot counts for informational purposes only.The T-SPOT.TB test should not be interpreted as aquantitative test. TS PANEL A 0 [facility] TS PANEL B 0 [facility] Negative Control Passed [facility] Positive Control Passed [facility] Comment:For additional infor nyla, please refer tohttp://[email or web address].[email or web address].Mx/faq/[email or web address](This link is being provided for informational/educational purposes only.)THIS TEST WAS PERFORMED AT:[employer] [id number] [place] [id number] WHARTON MD,PHD 09/14/2024 4:02 PM EDT 09/14/2024 4:02 PM EDT us Ely Sánchez MD LAB BLOOD ORDERABLES Final Res ult [facility] [address] [place] [phone] [phone] documented in this encounter Visit Diagnoses Diagnosis Physical exam- Primary Unspecified general medical examination Screening for colon cancer Special screening for malignant neoplasms, colon documented in this encounter Additional Health Concerns Assessment Noted Time PHQ-9 Depression Total Score: 20 025 1:18 PM EDT documented as of this encounter Care Teams Propellant Charge Zone Assembler Relationship Specialty Start Date End Date Ely Sánchez MD [address] [place] [address] PCP - General Family Medicine 10/21/23 documented as of this encounter
--- OUTSIDE RECORDS SUMMARY | 2024-10-30 14:10 | XMS_ITS | Clinical Summary ---
Author Organization [facility] Address [address] [place] [address] Phone Care Team Providers Care Mold Maker Helper Name Role Phone Physician, No Pcp Primary Care Provider Unavaila ble Allergies No known active allergies Medications albuterol HFA (PROAIR HFA ; PROVENTIL HFA ; VENTOLIN HFA) 90 mcg/actuation inhaler Inhale 2 puffs by mouth every 4 (four) hours if needed for shortness of breath. 1 each Active Active Problems No known active problems Medical History Medical History Date Comments Asthma Social History Tobacco Use Types Packs/Day Years Used Date Smoking Tobacco: Never Assessed Sex and Gender Information Value Date Recorded Sex Assigned at Not on file Legal Sex Male 4:30 AM EDT Gender Identity Not on file Sexual Orientation Not on file Obstetrics History Last Filed Vital Signs Vital Sign Reading Time Taken Comments Blood Pressure 107/69 06/27/2024 4:43 AM EDT Pulse 54 06/27/2024 4:43 AM EDT Temperature 36.5 C (97.7 F) 06/27/2024 4:43 AM EDT Respiratory Rate 24 06/27/2024 4:43 AM EDT Oxygen Saturation 97% 06/27/2024 5:00 AM EDT Inhaled Oxygen Concentration - - Weight 88.5 kg (195 lb) 06/27/2024 4:43 AM EDT Height 177.8 cm (5' 10 ) 06/27/2024 4:43 AM EDT Body Mass Index 27.98 06/27/2024 4:43 AM EDT Plan of Treatment Health Maintenance Due Date Last Done Comments DTaP,Tdap,and Td Vaccines (1 - Tdap) 1988 Hepatitis B Vaccines (1 of 3 - 19+ 3-dose series) 1988 Pneumococcal Vaccine: 50+ Ye ars (1 of 1 - PCV) 10/07/2019 Zoster Vaccines (1 of 2) 10/07/2019 Depression Screening 02/12/2024 Cholesterol Screening (Lipid Panel) 06/27/2024 Colorectal Cancer Screening: Colonoscopy 06/27/2024 HIV Screening 06/27/2024 Hepatitis C Screening 06/27/2024 Social Influencers of Health Screening 06/27/2024 COVID-19 Vaccine (1 - 2023-2 5 season) 2024 Influenza Vaccine (#1) 2024 RSV Immunization Adult Patie nts (1 - 1-dose 75+ series) 2044 HIB Vaccines Aged Out No longer eligi ble based on patient's age to complete this topic HPV Vaccines Aged Out No longer eligi ble based on patient's age to complete this topic Hepatitis A Vaccines Aged Out No long er eligible based on patient's age to complete this topic IPV Vaccines Aged Out No longer eligi ble based on patient's age to complete this topic MMR Vaccines Aged Out No longer eligi ble based on patient's age to complete this topic Meningococcal ACWY Vaccine Aged Out N o longer eligible based on patient's age to complete this topic Meningococcal B Vaccine Aged Out No l onger eligible based on patient's age to complete this topic RSV Immunization Patients Un braydon 20 months Aged Out No longer eligible b ased on patient's age to complete this topic Varicella Vaccines Aged Out No longer eligible based on patient's age to complete this topic Insurance [place] - [place] Care Teams Mold Maker Helper Relationship Specialty Start Date End Date Physician, No Pcp PCP - General 5/17/25
--- OUTSIDE RECORDS SUMMARY | 2024-10-30 14:10 | XMS_ITS | Encounter Summary ---
Author Organization [employer] Address [address] [facility] [address] [place] [address] Care Team Providers Care Iron Plastic Bullet Maker Name Role Phone Ely Sánchez MD Primary Care Provider [phone] Encounter Details Date Type Department Care Team (Late st Contact Info) Description 12/02/2023 Orders Only [facility] MED[facility] [address] [place] [address] Katrin Lieberman RN Encounter for immunization Social History Tobacco [...] Description 11/09/2024 1:45 PM EDT Office Visit [facility] [address] [place] [phone] Jairo Valenzuela MD [address] [place] [address] documented as of this encounter Visit Diagnoses Diagnosis Encounter for immunization documented in this encounter Additional Health Concerns Assessment Noted Time PHQ-9 Depression Total Score: 21 024 1:23 PM EDT documented as of this encounter Care Teams Iron Plastic Bullet Maker Relationship Specialty Start Date End Date Ely Sánchez MD [address] [place] [id number] PCP - General Family Medicine 10/21/23 documented as of this encounter
--- OUTSIDE RECORDS SUMMARY | 2024-10-30 14:10 | XMS_ITS | Clinical Summary ---
Author Organization [facility] Address [address] [place] [address] Care Team Providers Care Body Press Operator Name Role Phone Unavailable Primary Care Provider Unavailabl e Source Comments PLEASE NOTE, if this patient is a minor, it may be UNLAWFUL to discuss sensitive information that is contained in these records (such as FAMILY PLANNING, MENTAL HEALTH or SUBSTANCE ABUSE) with the minor patient's parent or other person without the patient's specific authorization.[facility] Medications albuterol HFA 90 mcg/actuation inhaler Inhale 2 Puffs into the lungs every 4 (four) hours as needed. 4 02/07/20 25 Active DULCOLAX, BISACODYL, 5 mg EC tablet Take 5 mg by mouth once daily as needed. 5 04/21/19 26 Active buprenorphine-n aloxone (SUBOXONE FILM) 8-[address] 1 Film under the tongue daily. 5 Active docusate sodium (COLACE) 100 mg capsule Take 100 mg by mouth 2 (two) times daily as needed. 5 Active NARCAN 4 mg/actuation nasal spray Place 4 mg into the nostril(s) as needed for opioid reversal. Active ARIPiprazole (ABILIFY) 30 mg tablet Take 1 Tablet by mouth once daily for 30 days. 30 Tablet 5 11/22/19 25 Active benztropine (COGENTIN) 1 mg tablet Take 1 Tablet by mouth 2 (two) times daily for 30 days. 60 Tablet 5 11/22/19 25 Active hydrOXYzine HCL (ATARAX) 50 mg tablet Take 1 Tablet by mouth 2 (two) times daily as needed for anxiety for up to 30 days. 60 Tablet 5 11/22/19 25 Active hydrOXYzine pamoate (VISTARIL) 100 mg capsule Take 1 Capsule by mouth nightly at bedtime as needed for sleep for up to 30 days. 30 Capsule 5 11/22/19 25 Active lithium carbonate 300 mg capsule Take 1 Capsule by mouth daily for 30 days. 30 Capsule 5 11/22/19 25 Active hydrOXYzine pamoate (VISTARIL) 100 mg capsule Take 1 Capsule by mouth nightly at bedtime as needed for sleep for up to 30 days. 30 Capsule 5 10/02/19 25 Discontinu ed(Reorder (E-Cancel Not Sent)) benztropine (COGENTIN) 1 mg tablet Take 1 Tablet by mouth 2 (two) times daily for 30 days. 60 Tablet 5 10/02/19 25 Discontinu ed(Reorder (E-Cancel Not Sent)) ARIPiprazole (ABILIFY) 30 mg tablet Take 1 Tablet by mouth once daily for 30 days. 30 Tablet 5 10/02/19 25 Discontinu ed(Reorder (E-Cancel Not Sent)) hydrOXYzine HCL (ATARAX) 50 mg tablet Take 1 Tablet by mouth 2 (two) times daily as needed for anxiety for up to 30 days. 60 Tablet 5 10/02/19 25 Discontinu ed(Reorder (E-Cancel Not Sent)) lithium carbonate 300 mg capsule Take 1 Capsule by mouth daily for 30 days. 30 Capsule 5 10/02/19 25 Discontinu ed(Reorder (E-Cancel Not Sent)) ARIPiprazole (ABILIFY) 30 mg tablet Take 1 Tablet by mouth once daily for 30 days. 30 Tablet 5 10/23/19 25 Discontinu ed(Reorder (E-Cancel Not Sent)) benztropine (COGENTIN) 1 mg tablet Take 1 Tablet by mouth 2 (two) times daily for 30 days. 60 Tablet 5 10/23/19 25 Discontinu ed(Reorder (E-Cancel Not Sent)) hydrOXYzine HCL (ATARAX) 50 mg tablet Take 1 Tablet by mouth 2 (two) times daily as needed for anxiety for up to 30 days. 60 Tablet 5 10/23/19 25 Discontinu ed(Reorder (E-Cancel Not Sent)) hydrOXYzine pamoate (VISTARIL) 100 mg capsule Take 1 Capsule by mouth nightly at bedtime as needed for sleep for up to 30 days. 30 Capsule 5 10/23/19 25 Discontinu ed(Reorder (E-Cancel Not Sent)) lithium carbonate 300 mg capsule Take 1 Capsule by mouth daily for 30 days. 30 Capsule 5 10/23/19 25 Discontinu ed(Reorder (E-Cancel Not Sent)) Active Problems Problem Noted Date Diagnosed Date Chronic nonintractable headache 04/20/2024 Mild persistent asthma ([facility]) 02/10/2024 Generalized anxiety disorder with panic attacks 09/03/2023 Opioid use disorder 09/03/2023 Assessment & Plan (10/01/2024 2:38 PM EDT): Continue MOUD Stimulant use disorder 09/03/2023 Assessment & Plan (09/03/2024 2:21 PM EDT): In remission for 3 months. Longest sobriety 12 years while incarcerated. Assessment & Plan (08/06/2024 5:23 PM EDT): In remission for 3 months. Longest sobriety 12 years while incarcerated. Tobacco dependence 09/02/2023 Assessment & Plan (08/06/2024 5:17 PM EDT): A: 12 sticks per day P: not ready to quite Schizophrenia ([facility]) 07/19/2023 Assessment & Plan (10/22/2024 1:56 PM EDT): Schizophrenia with active psychosis Assessment: symptoms under control since patient became compliant with medication. He is in a good mood, has good insight and staying focus on achieving his goal to move out. Plan: - continue aripiprazole 30 mg - Continue lithium 300 mg PO at bedtime - continue benztropine to 1 mg PO twice daily Assessment & Plan (10/01/2024 2:38 PM EDT): Schizophrenia with active psychosis Assessment: Patient with history of non compliance, current regiment seems effective when taken as ordered but patient has a trend of stopping medication when he feels better, he does not want MARGARITA, has agreed to remain compliant this time. Plan: - continue aripiprazole 30 mg - Continue lithium 300 mg PO at bedtime - continue benztropine to 1 mg PO twice daily Assessment & Plan (09/03/2024 2:20 PM EDT): Schizophrenia with active psychosis Assessment: Patient with long standing history of schizophrenia. He experiences persistent auditory and visual hallucinations, including negative comments and commands at time, see bacilio and voiced that he saw demons around the provider during this visit. Patient also reports difficulty looking at himself in the mirror, perceiving a distorted self-image. These symptoms suggest active psychosis despite current medication regimen. Recent medication non-adherence and substance use relapse likely exacerbated psychotic symptoms. Plan: - continue aripiprazole 30 mg - Continue lithium 300 mg PO at bedtime - stop haloperidol 1 mg PO at bedtime ( it makes me feel horrible) - continue benztropine to 1 mg PO twice daily Assessment & Plan (08/06/2024 5:59 PM EDT): Schizophrenia with active psychosis Assessment: Patient with long standing history of schizophrenia. He experiences persistent auditory and visual hallucinations, including negative comments and commands at time, see bacilio and voiced that he saw demons around the provider during this visit. Patient also reports difficulty looking at himself in the mirror, perceiving a distorted self-image. These symptoms suggest active psychosis despite current medication regimen. Recent medication non-adherence and substance use relapse likely exacerbated psychotic symptoms. Plan: - restart as follow- aripiprazole Take 1 Po daily x 7 days, then 2 tabs day 14 days then start 30 mg on August 28. - Continue lithium 300 mg PO at bedtime ( no refill needed ) - Continue haloperidol 1 mg PO at bedtime ( no refill needed) - Increase benztropine to 1 mg PO twice daily Housing insecurity 07/19/2023 Encounters Date Type Department Care Team Description 10/22/2024 1:45 PM EDT Behavioral Health Visit [facility] [address] [place] [address] [place] [id number] MckayPriscillaGEENA 10/01/2024 2:00 PM EDT Behavioral Health Visit [facility] [address] [place] [phone] Priscilla BashirGEENA 09/03/2024 1:30 PM EDT Behavioral Health Visit [facility] [address] [place] [address] MckayAmandaPriscillaGEENA bass 08/06/2024 3:00 PM EDT Behavioral Health Visit [facility] [address] [place] [phone] Priscilla Bashir APRN from Last 3 Months Immunizations Immunization Administration Dates Next Due INFLUENZA, SEASONAL, INJECTABLE, PRESERVATIVE FR EE 02/07/2024 Social History Tobacco Use Types Packs/Day Years Used Date Smoking Tobacco: Never Assessed Sex and Gender Information Value Date Recorded Sex Assigned at Not on file Legal Sex Male 4:33 AM PDT Gender Identity Not on file Sexual Orientation Not on file Plan of Treatment Upcoming Encounters Date Type Department Care Team (Late st Contact Info) Description 11/24/2024 12:00 PM EDT Behavioral Health Visit [facility] [address] [place] [phone] MckayAmandaPriscillaGEENA bass [address] [facility] [place] [address] Health Maintenance Due Date Last Done Comments Anxiety Screening 1969 Tobacco Cessation Counseling (#1) 1969 Tobacco Screening 1969 Hypertension Screening (#1) 10/07/1987 Imm-DTaP/Tdap/Td (1 - Tdap) 1988 Imm-Pneumococcal 50+ (1 of 2 - PCV) 1988 CT Colonography 2014 Colonoscopy 2014 Colorectal Cancer Screening 2014 FIT/gFOBT 2014 Fecal DNA 2014 Flexible Sigmoidoscopy 2014 Imm-Zoster, Recombinant (1 of 2) 10/07/2019 Alcohol and Drug Screen 02/12/2024 Depression Annual Screen 02/12/2024 [id number] ( season) 2024 Imm-Influenza (#1) 2024 02/07/2024 Lipid Screening 10/20/2024 10/21/2023 Diabetes Screening 09/14/2025 09/14/2024 HIV Screening Completed 10/21/2023, 10/21/2023 Hepatitis C Screening Completed 10/21/2023 Imm-Hepatitis B Completed 12/02/2023, 10/23/2023 Insurance [facility]
--- OUTSIDE RECORDS SUMMARY | 2024-10-30 14:10 | XMS_ITS | Encounter Summary ---
Author Organization [employer] Address [address] [place] [address] Care Team Providers Care Agronomy Advisor Name Role Phone Ely Sánchez MD Primary Care Provider [phone] Encounter Details Date Type Department Care Team (Late st Contact Info) Description 12/02/2023 Orders Only [facility] MED[facility]INE [address] [place] [address] Katrin Lieberman, RN Social History Tobacco Use [...] Description 11/09/2024 1:45 PM EDT Office Visit [facility] [address] [place] [address] Jairo Valenzuela MD [address] [place] [address] documented as of this encounter Visit Diagnoses Not on filedocumented in this encounter Additional Health Concerns Assessment Noted Time PHQ-9 Depression Total Score: 21 024 1:23 PM EDT documented as of this encounter Care Teams Agronomy Advisor Relationship Specialty Start Date End Date Ely Sánchez MD [address] [place] [id number] PCP - General Family Medicine 10/21/23 documented as of this encounter
--- OUTSIDE RECORDS SUMMARY | 2024-10-30 14:10 | XMS_ITS | Clinical Summary ---
Author Organization [employer] Address [address] [facility] 7t [place] [address] Care Team Providers Care Engineer Process Name Role Phone Ely Sánchez MD Primary Care Provider [phone] Allergies No known active allergies Medications * This document contains information received from the source organization and may not represent a complete record from that organization. nicotine polacrilex (Commit) 4 MG lozenge Dissolve 1 lozenge (4 mg) in the mouth every 2 (two) hours if needed for smoking cessation. 100 lozenge 4 Active OLANZapine zydis (ZyPREXA) 5 MG disintegrating tablet Take 5 mg by mouth if needed in the morning and at bedtime. 4 Active melatonin 10 MG tablet Take 10 mg by mouth at bedtime. 4 Active lithium ER (Lithobid) 300 MG 12 hr tablet Take 600 mg by mouth at bedtime. 4 Active hydrOXYzine HCl (Atarax) 50 MG tablet Take 50 mg by mouth if needed in the morning and at bedtime. 4 Active gabapentin (Neurontin) 300 MG capsule Take 600 mg by mouth at bedtime. 4 Active cholecalciferol (Vitamin D-[address]) 25 MCG (1000 UT) tablet Take 1,000 Units by mouth Once per day. 4 Active benztropine (Cogentin) 1 MG tablet Take 1 mg by mouth at bedtime. 4 Active ARIPiprazole (ABILIFY MAINTENA IM) Inject into the muscle. Active albuterol 108 (90 Base) MCG/ACT inhalerIndications: Mild persistent asthma, unspecified whether complicated Inhale 2 puffs every 4 (four) hours if needed for wheezing. 18 g 11 4 02/07/20 25 Active Arnuity Ellipta 100 MCG/ACT inhaler INHALE 1 PUFF BY MOUTH EVERY DAY AT THE SAME TIME RINSE MOUTH AFTER USING. RINSE MOUTH AFTER USING.. DO NOT SWALLOW. 30 each 11 4 Active hydrocortisone (Anusol-HC) 2.5 % rectal creamIndications:Re ctal bleeding Insert into the rectum 2 times daily. 28 g 3 5 Active bisacodyl (Dulcolax) 5 MG EC tablet Take 1 tablet (5 mg) by mouth if needed each day for constipation . Do not crush, chew, or split. 30 tablet 3 5 04/21/19 26 Active docusate sodium (Colace) 100 MG capsuleIndications: Uncomplicated opioid dependence (CMS/HCC) Take 1 capsule (100 mg) by mouth if needed in the morning and at bedtime for constipation . 180 capsule 3 5 Active Buprenorphine HCl-Naloxone HCl (Suboxone) 8-2 MG SL filmIndications:Unc omplicated opioid dependence (CMS/HCC) Place 1 Film under the tongue Once per day. 28 Film 2 5 11/04/19 25 Active buprenorphine-nalox one (Suboxone) 4-1 MG per sublingual filmIndications:Unc omplicated opioid dependence (CMS/HCC) Place 1 Film under the tongue Once per day. 28 Film 2 5 11/11/19 25 Active senna (Senokot) 8.6 MG tablet TAKE 2 TABLETS BY MOUTH EVERY DAY AT BEDTIME 180 tablet 1 5 Active Active Problems Problem Noted Date Diagnosed Date Chronic nonintractable headache 04/20/2024 Assessment & Plan (04/20/2024 2:33 PM EDT): Pt attended and participated in chronic pain group today - good engagement with group model of care - continue to use combination of non-pharmacological modalities to address pain - followup in one month Mild persistent asthma 02/10/2024 Assessment & Plan (02/10/2024 10:43 AM EST): Restart ICS controller BID, DWIGHT prn Return to clinic precautions Hallucinations 09/13/2023 Assessment & Plan (02/10/2024 10:43 AM EST): Controlled with injectable Abilify Verbal auditory hallucinations 09/13/2023 Opioid use disorder 09/03/2023 Assessment & Plan (02/10/2024 10:44 AM EST): On Suboxone at [facility] Provider Dr. Valenzuela Assessment & Plan (10/30/2023 [...] (02/10/2024 10:45 AM EST): Continue Abilify injections, Tracy His sister will slate picker other psych medications today Reviewed CRISIS [...] with the community after being released from long term . During today's consult, Logan reports increase of sxs due to be out of his pych medication. He previously had psychiatry services while being incarcerated in [place] and carries a diagnosis of Schizophrenia. Then, he was transferred to [place] but didn't have a treatment plan to [...] [facility] as needed Pt [facility]referred to [facility] for a psychiatry evaluation with options to [...] with the community after being released from long term . During today's consult, Logan reports increase of sxs due to be out of his pych medication. He previously had psychiatry services while being incarcerated in [place] and carries a diagnosis of Schizophrenia. Then, he was transferred to [place] but didn't have a treatment plan to [...] Self Plan Patient to reach out to [facility] as needed Pt was self-referred to [facility] for a psychiatry evaluation with options to look into respite if spots are available. Information provided to pt. Encounters Date Type Department Care Team Description 10/16/2024 Orders Only [facility] MEDICINE [address] [place] [phone] Katrin Lieberman RN Uncomplicated opioid dependence ([facility]/HCC) 10/16/2024 Orders Only [facility] MEDICINE [address] [place] [address] Katrin Lieberman RN 09/14/2024 Orders Only GENERIC EXTERNAL DATA DEPARTMENT Provider, Generic External Data 09/10/[address] [address] Jairo Valenzuela MD 09/02/2024 Orders Only [address] [address] Ely Sánchez MD Physical exam (Primary Dx); Screening for colon cancer 08/25/[address] [address] Ely Sánchez MD Referral 08/25/[address] [address] Ely Sánchez MD Nurse Triage 08/24/2024 Patient Outreach [address] [address] Nisha Vergara Recovery Supports 08/18/[address] [address] Katrin Lieberman RN Uncomplicated opioid dependence (CMS/HCC) 08/17/2024 1:45 PM EDT Clinical Support [facility] MEDICINE [address] [place] [phone] Katrin Lieberman RN Uncomplicated opioid dependence (CMS/HCC) (Primary Dx) 08/17/2024 Travel 08/11/2024 Refill [facility] MEDICINE [address] [place] [address] Jairo Valenzuela MD Uncomplicated opioid dependence (CMS/HCC) 08/11/[address] [address] Ely Sánchez MD Call Back Request 08/10/[address] [address] Ely Sánchez MD Referral 08/07/2024 Patient Outreach [address] [address] Rahat Monk Recovery Supports 08/05/2024 Refill [facility] MEDICINE [address] [place] [address] Katrin Lieberman RN Uncomplicated opioid dependence (CMS/HCC) from Last 3 Months Immunizations Immunization Administration Dates Next Due HepB-CpG 12/02/2023,10/23/2023 11/20/2023 Influenza, seasonal, injectable, preservative fr ee 02/07/2024 Social History Tobacco Use Types Packs/Day Years Used Date Smoking Tobacco: Former Cigarettes Passive Smoke Exposure: Current Smokeless Tobacco: Never Tobacco Cessation:Counseling Given: Not Answered Alcohol Use Standard Drinks/Week Comments Never 0 (1 standard drink = 0.6 oz pur e alcohol) Depression Answer Date Recorded Patient Health Questionnaire-9 Score 20 06/30/2024 Patient Health Questionnaire-9 Score 20 06/30/2024 [...] 73 03/27/2024 1:23 PM EST Temperature 36.8 C (98.2 F) 03/27/2024 1:23 PM EST Respiratory Rate 16 03/27/2024 1:23 PM EST [...] Description 11/09/2024 1:45 PM EDT Office Visit [facility] MEDICINE [address] [place], [place] [phone] Jairo Valenzuela MD [address] [place] [address] Health Maintenance Due Date Last Done Comments CT Colonography 1969 Colonoscopy 1969 Colorectal Cancer Screening 1969 FIT DNA/Cologuard 1969 FIT 1969 FOBT 1969 Sigmoidoscopy 1969 Disability Screening 1969 DTaP/Tdap/Td Vaccines (1 - Tdap) 1988 Pneumococcal Vaccine: 50+ Years (1 of 2 - PCV) 1988 Zoster Vaccines (1 of 2) 10/07/2019 COVID-19 Vaccine (1 - 2023-2 5 season) 2024 Influenza Vaccine (#1) 2024 02/07/2024 SDOH Screening 10/20/2024 10/21/2023 Depression Monitoring 12/31/2024 06/30/2024 , 06/30/2024 Alcohol/Substance Use Screening 02/06/2025 02/07/2024 Tobacco Screening 06/22/2025 06/22/2024 Lipid Panel 10/20/2028 10/21/2023 RSV Patients and Patients Aged 60 years or older (1 - 1-dose 75+ series) 2044 HIV Screening Completed 10/21/2023 Hepatitis C Screening Completed 10/21/2023 Hepatitis B Vaccines Completed 12/02/2023, 10/23/2023 HIB Vaccines Aged Out No longer eligi [...] Procedure Name Priority Date/Time Associated Diagnosis Comments VITAMIN D 25-OH (D2 AND D3) Routine 09/14/2024 4:02 PM EDT VITAMIN B12/FOLATE, SERUM PANEL Routine 09/14/2024 4:02 PM EDT TSH W/REFLEX TO FT4 Routine 09/14/2024 4 :02 PM EDT COMPREHENSIVE METABOLIC PANEL Routine 09/14/2024 4:02 PM EDT CBC Routine 09/14/2024 4:02 PM EDT T-SPOT(R).TB Routine 09/14/2024 4:02 PM EDT Physical exam POCT DAVID-14 URINE DRUG SCREEN Routine 08/17/2024 1:01 PM EDT Uncomplicated opioid dependence (CMS/HCC) HEPATITIS C AB W/REFL TO HCV RNA, QN, PCR Routine 10/21/2023 1:51 PM EDT Uncomplicated opioid dependence (CMS/HCC) HIV 1/2 ANTIGEN/ANTIBODY, FOURTH GENERATION W/RFL Routine 10/21/2023 1:51 PM EDT Uncomplicated opioid dependence (CMS/HCC) LIPID PANEL, STANDARD Routine 10/21/2023 1:51 PM EDT Routine physical examination from Last 3 Months or Most Recently Relevant to Health Maintenance Results * (ABNORMAL) VITAMIN D 25-OH (D2 AND D3) (09/14/2024 4:02 PM EDT) Vitamin D, 25-OH, D2 <4 ng/mL [facility] Comment:This test was develo ped and its analytical performancecharacteristics have been determined by [employer] [place], [place]. It hasnot been cleared or approved by the U.S. Food and DrugAdministration. This assay has been validated pursuantto the CLIA regulations and is used for clinicalpurposes.THIS TEST WAS PERFORMED AT:[employer] [place] [address]JCFIXKA W. MASON,MD,PHD Vitamin D, 25-OH, D3 19 ng/mL [facility] Comment:This test was jacqui esquivel and its analytical performancecharacteristics have been determined by [employer] [place], [place]. It hasnot been cleared or approved by the U.S. Food and DrugAdministration. This assay has been validated pursuantto the CLIA regulations and is used for clinicalpurposes. Vitamin D, 25-OH, Total 19(A) 30 - 100 ng/mL [facility] Comment:Vitamin D, 25-Hydrox y reports concentrations of twocommon forms, 25-OHD2 and 25-OHD3. 25-OHD3 indicatesboth endogenous production and supplementation.25-OHD2 is an indicator of exogenous sources such asdiet or supplementation. Therapy is based onmeasurement of Total 25-OHD, with levels <20 ng/mLindicative of Vitamin D deficiency, while levelsbetween 20 ng/mL and 30 ng/mL suggest insufficiency.Optimal levels are > or = 30 ng/mL.For additional information, please refer tohttp://education.[employer]/faq/OGZ491(This link is being provided for informational/educational purposes only.) 09/14/2024 4:02 PM EDT 09/14/2024 4:02 PM EDT us Generic External Data Provider LAB BLOOD ORDERAB LES Final Result [facility] [address] [place] [phone] * Vitamin B12 (Cobalamin) and Folate Panel, Serum (09/14/2024 4:02 PM EDT) Vitamin B12 288 200 - 900 pg/mL [facility] Comment:NORMAL 200-900 PG/ML INDETERMINATE 160-199 PG/ML DEFICIENT < 160 PG/ML Folate 7.2 > or = 4.0 ng/mL [facility] Comment:Reference Values:> o r = 4.0 ng/mL< 4.0 ng/mL suggests folate deficiency Methotrexate, aminopterin and folinic acid(leucovorin) are chemotherapeutic agents whose molecularstructures are similar to folate; therefore, the Architectfolate assay cannot be used for patients using these drugs. 09/14/2024 4:02 PM EDT 09/14/2024 4:02 PM EDT us Generic External Data Provider LAB BLOOD ORDERAB LES Final Result [facility] [address] [place] [phone] * T-SPOT??.TB (09/14/2024 4:02 PM EDT) T Spot TB Negative Negative [facility] Comment:A negative test resu lt does [...] as aquantitative test. TS PANEL A 0 [facility] TS PANEL B 0 [facility] Negative Control Passed [facility] Positive Control Passed [facility] Comment:For additional infor mation, please refer tohttp://education.[employer]/faq/MWN904(This link is being provided for informational/educational purposes only.)THIS TEST WAS PERFORMED AT:[employer] [id number] [place] [address]LALBRPKCORNEL WHARTON MD,PHD 09/14/2024 4:02 PM EDT 09/14/2024 4:02 PM EDT us Ely Sánchez MD LAB BLOOD ORDERABLES Final Res ult Performing Organization Address City/[facility]/ZIP Co de Phone Number [facility] [address] [place] [phone] * TSH with Reflex to Free T4 (09/14/2024 4:02 PM EDT) Pathologist [facility] TSH reflex Free T4 0.67 0.32 - 4.0 uIU/mL [facility] 09/14/2024 4:02 PM EDT 09/14/2024 4:02 PM EDT us Generic External Data Provider LAB BLOOD ORDERAB LES Final Result Performing Organization Address [facility]/ZIP Co de Phone Number [facility] [address] [place] [phone] * (ABNORMAL) CBC (09/14/2024 4:02 PM EDT) Pathologist [facility] White Blood Count 6.7 4.8 - 10.8 X10*3/uL [facility] Red Blood Count 4.82 4.60 - 5.80 X10*6/uL [facility] Hemoglobin 12.9(L) 14.0 - 18.0 g/dl [facility] Hematocrit 39.7(L) 42.0 - 52.0 % [facility] Mean Corpuscular Volume 82.4 80.0 - 98.0 fL [facility] Mean Corpuscular Hemoglobin 26.8(L) 27.0 - 33.0 pg [facility] Mean Corpuscular HGB Conc 32.5 31.0 - 36.0 g/dl [facility] Red Cell Distribution Width 12.0 11.0 - 16.0 % [facility] Platelet Count 292 160 - 400 X10*3/uL [facility] Mean Platelet Volume 10.3 9.4 - 12.4 fL [facility] NRBC Pct Auto 0.0 0.0 - 0.2 /100WBC [facility] NRBC Abs Auto 0.000 0.0 - 0.012 X10*3/uL [facility] 09/14/2024 4:02 PM EDT 09/14/2024 4:02 PM EDT us Generic External Data Provider LAB BLOOD ORDERAB LES Final Result [facility] [address] [place] [phone] * (ABNORMAL) Comprehensive Metabolic Panel (09/14/2024 4:02 PM EDT) Sodium 141 135 - 145 mmol/L [facility] Potassium 4.0 3.3 - 5.1 mmol/L [facility] Chloride 108 96 - 108 mmol/L [facility] Carbon Dioxide 26 22 - 29 mmol/L [facility] Anion Gap 11(L) 12 - 20 [facility] Urea Nitrogen (BUN) 11 9 - 16 mg/dL [facility] Creatinine, Serum 1.04 0.5 - 1.4 mg/dL [facility] Estimated Glomerular Filt Rate >60 [facility] Comment:Chronic Kidney Disea se: Estimated GFR < 60 mL/min/1.86j6Owarpe Kidney Disease: Estimated GFR < 15 mL/min/1.73m2 Glucose 94 60 - 115 mg/dL [facility] Calcium 9.2 8.4 - 10.2 mg/dL [facility] Bilirubin, Total 0.4 0.0 - 1.0 mg/dL [facility] Aspartate Amino Transferase 34 5 - 37 U/L [facility] Alanine Aminotransferase 28 0 - 40 U/L [facility] Total Protein 6.7 6.5 - 8.0 g/dL [facility] Albumin Level 4.4 3.5 - 5.0 g/dL [facility] Alkaline Phosphatase 76 39 - 117 U/L [facility] 09/14/2024 4:02 PM EDT 09/14/2024 4:02 PM EDT Generic External Data Provider LAB BLOOD ORDERAB LES Final Result Performing Organization Address City/[facility]/ZIP Co de Phone Number [facility] [address] [place] [phone] * (ABNORMAL) POCT DAVID-14 Urine Drug Screen (08/17/2024 1:01 PM EDT) THC Negative Negative Cocaine Screen, Urine Negative Negative Opiate Screen, Urine Negative Negative Methamphetamine Screen Urine Negative Negative Amphetamine Screen, Urine Negative Negative Benzodiazepines Screen, Urine Negative Negative Barbiturate Screen, Urine Negative Negative Methadone Screen, Urine Negative Negative Buprenophine Screen, Urine Positive(A) Negative TCA, Urine Negative Negative MDMA Urine Negative Negative ng/mL Oxycodone Screen, Urine Negative Negative Phencyclidine (PCP), Urine Negative Negative Fentanyl, Urine Negative Negative Urine Urine specimen obtained by clean catch procedure / Unknown 08/17/2024 1:01 PM EDT Iqra Chen MD POINT OF CARE TEST ENTER/BARBARA T ORDERABLES Final Result * Hepatitis C Antibody with Reflex to HCV, RNA, Quantitative, Real-Time PCR (10/21/2023 1:51 PM EDT) Pathologist [facility] Hepatitis C Antibody Nonreactive Nonreactive [facility] Comment:Antibodies to HCV no t detected; does not exclude early acuteHCV infection. Blood Venous blood specimen / Unknown 10/21/2023 1:51 PM EDT 10/21/2023 4:28 PM EDT Jairo Valenzuela MD LAB BLOOD ORDERABLES Final Resul t Performing Organization Address City/[facility]/ZIP Co de Phone Number [facility] [address] [place] [phone] * HIV-1/2 Antigen and Antibodies, Fourth Generation, with Reflexes (10/21/2023 1:51 PM EDT) HIV AB/AG Nonreactive Nonreactive [facility] Comment:HIV-1 p24 Ag and/or HIV-1/HIV-2 Ab not detected.A test result that is nonreactive does not exclude thepossibility of exposure to or infection with HIV-1 and/orHIV-2. Nonreactive results in this assay for individualswith prior exposure to HIV-1 and/or HIV-2 may be due toantigen and antibody levels that are below the limit ofdetection of this assay.The Hypereight HIV Ag/Ab Combo assay result andsupplemental assay results should be interpreted inconjunction with the patient's clinical presentation,history and other laboratory results. If the results areinconsistent with clinical evidence, additional testing issuggested to confirm the result. Blood Venous blood specimen / Unknown 10/21/2023 1:51 PM EDT 10/21/2023 4:28 PM EDT us Jairo Valenzuela MD LAB BLOOD ORDERABLES Final Resul t [facility] [address] [place] [address] [phone] * (ABNORMAL) Lipid Panel, Standard (10/21/2023 1:51 PM EDT) Triglycerides 104 <150 mg/dL [facility] Comment:Desirable Triglyceri de: less than 150 mg/dLBorderline High Triglyceride 150-199 mg/dLHigh Triglyceride: 200-499 mg/dLVery High Triglyceride: greater than or equal to 5OO mg/dL Cholesterol 147 <200 mg/dL [facility] Comment:Desirable Cholestero l: less than 200 mg/dLBorderline High Cholesterol: 200-239 mg/dLHigh Cholesterol: greater than 239 mg/dL LDL Cholesterol Calculated 87 <100 mg/dL [facility] Comment:Desirable LDL: less than 100 mg/dLNear Optimal/Above Optimal LDL: 110- 129 mg/dLBorderline High LDL: 130-159 mg/dLHigh LDL: 160-189 mg/dLVery High LDL: greater than or equal to 190 mg/dL HDL Cholesterol 40(L) >40 mg/dL [facility] Comment:Desirable HDL: great er than 40 mg/dL Note: This HDL assay may give artificially low results in patients with liver disease. Blood Venous blood specimen / Unknown 10/21/2023 1:51 PM EDT 10/21/2023 4:28 PM EDT Ely Sánchez MD LAB BLOOD ORDERABLES Final Res ult [facility] [address] [place] [phone] [phone] from Last 3 Months or Most Recently Relevant to Health Maintenance Insurance [facility] C3 Care Teams Engineer Process Relationship Specialty Start Date End Date Ely Sánchez MD [address] [place] [address] PCP - General Family Medicine 10/21/23
--- OUTSIDE RECORDS SUMMARY | 2024-10-30 14:10 | XMS_ITS | Encounter Summary ---
Author Organization [employer] Address [address] [facility] [address] [place] [address] Care Team Providers Care Audiologist Name Role Phone Ely Sánchez MD Primary Care Provider [phone] Encounter Details Date Type Department Care Team (Late st Contact Info) Description 10/16/2024 Orders Only [facility] [address] [place] [address] Katrin Lieberman, RN Social History Tobacco Use [...] Description 11/09/2024 1:45 PM EDT Office Visit [facility] [address] [place] [address] Jairo Valenzuela MD [address] [place] [address] documented as of this encounter Visit Diagnoses Not on filedocumented in this encounter Additional Health Concerns Assessment Noted Time PHQ-9 Depression Total Score: 20 025 1:18 PM EDT documented as of this encounter Care Teams Audiologist Relationship Specialty Start Date End Date Ely Sánchez MD [address] [place] [phone] PCP - General Family Medicine 10/21/23 documented as of this encounter
--- NOTE | 2024-10-30 14:11 | MHC.OFFVIS ---
Vital Signs 10/30/24 14:12 Height 5 ft 9.5 in Weight 182 lb 15.739 oz BMI 26.6 BP 133/77 Blood Pressure Location Lt brachial Position Sitting Pulse 54 Intake Visit Reasons: Chronic abd pain mgmt. Review lab results. Intake Note: Logan presents in the office as a follow up. CC: 2 weeks ago he was having pains in the stomach but has been okay since. Here today for results to his last blood work. 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 Review lab results.: Details: LAST VISIT: Chronic constipation Postprandial abdominal bloating Plan Labs will be ordered for patient. Patient will start taking Linzess and stop Dulcolax. Increase fluid intake and activity to promote better bowel motility. Patient will follow-up in the office in 5-6 weeks, sooner on as needed basis. We will discuss going for possible colonoscopy if he still continues to have rectal bleed. Patient was given script for Proctosol. He is agreeable to cramping of them verbalizes understanding of instructions. She was given the opportunity to ask questions and all questions answered. ? Thank you for allowing me to participate in his care Orders Complete Blood Count no Diff Today K21.9 TSH reflex Free T4 Today K59.00 Vitamin B12 and Folate Today R19.7 Vitamin D 25-OH (D2 and D3) Today E55.9 Comprehensive Met. Panel Today K21.9 New linaclotide (Linzess) 145 mcg PO DAILY 30 caps 2RF hydrocortisone 2.5% (Proctosol HC) 1 appl AR BID 30 grams 1RF TODAY'S VISIT Patient is here today for follow-up. Patient reports that he has been doing fairly good, however few episodes of abdominal pain and bloating. Patient reports cramping with bowel movement. Patient denies diarrhea. Reports postprandial abdominal bloating, occasional acid reflux. Currently he is taking Linzess and stool softener and reports that he is moving his bowels. However he does admit that sometimes he has to push. Denies melena, hematochezia, unintentional weight loss or ribbon like stools. Patient denies any dyspepsia, dysphagia or odynophagia. Patient is not following any particular diet. Reports that he is not drinking enough water [facility] Medical History Chronic constipation Anxiety and depression Substance dependency Surgical History S/P colon polypectomy H/O colonoscopy Review of Systems Const Denies weight gain and Denies weight loss ENT Reports no additional complaints, Denies dysphagia and Denies odynophagia Card Reports no additional complaints Resp Reports no additional complaints GI Denies abdominal pain, Denies belching, Denies melena, Denies bloating, Denies change in bowel habits, Denies dysphagia, Denies excessive flatus, Denies dyspepsia, Denies heartburn, Denies diarrhea, Denies loose stools, Denies nausea, Denies odynophagia and Denies vomiting Reports no additional complaints Musc Reports no additional complaints Neuro Reports no additional complaints Psych Reports no additional complaints Endo Reports no additional complaints Physical Exam Vital Signs: Last Vital Signs Pulse 54 10/30/24 14:12 BP 133/77 10/30/24 14:12 BMI result Body Mass Index 26.6 Const General: healthy appearing, no acute distress and well developed Nutritional Appearance: well nourished Orientation/consciousness: patient oriented x3 Resp Effort & Inspection: normal respiratory effort, able to speak in complete sentences, no tracheal deviation and symmetric chest movement Auscultation: clear to auscultation bilaterally Cardio Rate: regular rate GI Inspection: Yes normal to inspection and No distended Palpation (GI): Soft to palpation, not firm, nontender and No hepatosplenomegaly present Auscultation: normal bowel sounds General: Yes no CVA tenderness Back/Spine/Pelvis Back: no CVA tenderness Skin General skin exam: elasticity normal, turgor normal and dry skin Neuro General: patient oriented x3 Psych Appearance: grossly normal Mental Status: mental status grossly normal Assessment & Plan Assessment & Plan (1) Chronic constipation: Code(s): K59.09 - Other constipation Category: Medical (2) Postprandial abdominal bloating: Code(s): R14.0 - Abdominal distension (gaseous) Plan Patient reports abdominal pain will order CT scan. Currently abdomen not tender. Patient reports severe abdominal pain couple weeks ago. Patient will continue taking Linzess. Increase fluid intake and activity to promote better bowel motility. Patient will start to take simethicone as needed. I will see him in 3 months. We will discuss going for colonoscopy. Patient is agreeable to this plan and verbalizes understanding of instructions. He was given the opportunity to ask questions and all questions answered. Thank you for allowing me to participate in his care Orders: Orders CT abdomen pelvis w IV con Today R10.9 - Unspecified abdominal pain Blood Urea Nitrogen Today R10.11 - Right upper quadrant pain Creatinine Today R10.11 - Right upper quadrant pain Medications: New simethicone 125 mg PO BID-QID PRN 120 caps 3RF abdominal distention Coding Level of Care Code Est Pt Level 3 (66751) Diagnoses Chronic constipation K59.09 Postprandial abdominal bloating R14.0 Time Spent (min) 30 Comment 20 minutes spent with patient and additional 10 minutes spent reviewing his records
[2024-10-30 14:12] VITALS: BP 133/77; PULSE 54; BMI 26.6
== END 2024-10-30 14:31 | disposition home or self-care (01) ==
PROVIDERS: PCP General Practice; Visit Provider Nurse Practitioner Family
DX: K59.09 Other constipation (principal); R14.0 Abdominal distension (gaseous)
CPT/HCPCS: 99213

== ENCOUNTER → 2024-10-30 14:03 | Outpatient (BNVA) | payer MEDICAID, SELFPAY | PROVIDERS: PCP General Practice; Visit Provider Nurse Practitioner Family | DX: K59.09 Other constipation (principal); R14.0 Abdominal distension (gaseous) | CPT/HCPCS: 99212 ==

== ENCOUNTER 2024-12-09 06:53 | Outpatient (REF) | payer MEDICAID, SELFPAY ==
--- NOTE | ~2024-12-09 | CT_ITS ---
CLINICAL HISTORY: R10.9 - Unspecified abdominal pain CT abdomen and pelvis with contrast Comparison: None provided Findings: Lower thorax: Bibasilar dependent atelectasis. Liver: No focal lesions. No biliary ductal dilatation. Patent portal vein. Gallbladder: Noninflamed gallbladder. Spleen: Normal Pancreas: No solid mass or main duct dilation. Adrenal glands: 10 mm left adrenal nodule (series 3, image 24). Thickening of the right adrenal gland without a discrete nodule. Kidneys: No hydronephrosis, solid mass, or stones. Pelvic organs: Normal Peritoneum and Gastrointestinal: No bowel obstruction, pneumoperitoneum, or ascites. Noninflamed appendix. Lymph nodes: No lymphadenopathy. Vessels: Atherosclerosis. Bones and soft tissues: Degenerative disc disease at L5-S1. IMPRESSION: No acute CT findings of the abdomen or pelvis. Incidental 10 mm left adrenal gland nodule is nonspecific on this exam. Recommend a dedicated CT/MR adrenal protocol study for further characterization. This document has been electronically signed by: Danna Parnell MD on 12/09/2024 18:13:55
--- OUTSIDE RECORDS SUMMARY | 2024-12-09 06:57 | XMS_ITS | Encounter Summary ---
Author Organization [employer] Address [address] [facility] [address] [place] [address] Care Team Providers Care Selling Specialist Name Role Phone Ely Sánchez MD Primary Care Provider [phone] Encounter Details Date Type Department Care Team (Late st Contact Info) Description 12/02/[address] [facility] [address] [place] [address] Katrin Lieberman, RN Social History Tobacco Use [...] Care Team (Late st Contact Info) Description 01/04/2025 1:30 PM EST Office Visit [facility] [address] [place] [address] Jairo Valenzuela MD [address] [place] [address] 02/22/2025 2:00 PM EST Office Visit [facility] [address] [place] [address] Ely Sánchez MD [address] [place] [phone] documented as of this encounter Visit Diagnoses Not on filedocumented in this encounter Additional Health Concerns Assessment Noted Time PHQ-9 Depression Total Score: 21 024 1:23 PM EDT documented as of this encounter Care Teams Selling Specialist Relationship Specialty Start Date End Date Ely Sánchez MD [address] [place] [phone] PCP - General Family Medicine 10/21/23 documented as of this encounter
--- OUTSIDE RECORDS SUMMARY | 2024-12-09 06:57 | XMS_ITS | Encounter Summary ---
Author Organization [employer] Address [address] [facility] 7t [place] [address] Care Team Providers Care Construction Sales Manager Name Role Phone Ely Sánchez MD Primary Care Provider [phone] Encounter Details Date Type Department Care Team (Late st Contact Info) Description 10/16/2024 Orders Only [facility] [address] [place] [address] Katrin Lieberman, RN Social History Tobacco Use [...] Description 01/04/2025 1:30 PM EST Office Visit [facility] [address] [place] [address] Jairo Valenzuela MD [address] [place] [phone] 02/22/2025 2:00 PM EST Office Visit [facility] [address] [place] [address] Ely Sánchez MD [address] [place] [address] documented as of this encounter Visit Diagnoses Not on filedocumented in this encounter Additional Health Concerns Assessment Noted Time PHQ-9 Depression Total Score: 20 025 1:18 PM EDT documented as of this encounter Care Teams Construction Sales Manager Relationship Specialty Start Date End Date Ely Sánchez MD [address] [place] [phone] PCP - General Family Medicine 10/21/23 documented as of this encounter
--- OUTSIDE RECORDS SUMMARY | 2024-12-09 06:57 | XMS_ITS | Encounter Summary ---
Author Organization [employer] Address [address] [facility] 7[address] [place] [address] Care Team Providers Care Business Performance Specialist Name Role Phone Ely Sánchez MD Primary Care Provider [phone] Reason for Visit * Reason Comments Med Refill Encounter Details Date Type Department Care Team ([place] [facility] st Contact Info) Description 11/02/2024 Refill [facility] [address] [place] [employer] [place], [place] [phone] Jairo Valenzuela MD [address] [place], [place] [phone] Uncomplicated opioid dependence (CMS/HCC) Social History Tobacco [...] Description 01/04/2025 1:30 PM EST Office Visit [facility] [address] [place] [address] Jairo Valenzuela MD [address] [place] [address] 02/22/2025 2:00 PM EST Office Visit [facility] [address] [place] [address] Ely Sánchez MD [address] [place] [address] documented as of this encounter Visit Diagnoses Diagnosis Uncomplicated opioid dependence (CMS/HCC) (HCC) documented in this encounter Additional Health Concerns Assessment Noted Time PHQ-9 Depression Total Score: 20 025 1:18 PM EDT documented as of this encounter Care Teams Business Performance Specialist Relationship Specialty Start Date End Date Ely Sánchez MD [address] [place] [phone] PCP - General Family Medicine 10/21/23 documented as of this encounter
--- OUTSIDE RECORDS SUMMARY | 2024-12-09 06:57 | XMS_ITS | Clinical Summary ---
Author Organization [facility] Address [address] [place] [address] Care Team Providers Care Manufacturing Lab Technician Name Role Phone Unavailable Primary Care Provider [...] nostril(s) as needed for opioid reversal. Active hydrOXYzine pamoate (VISTARIL) 100 mg capsule Take 1 Capsule by mouth nightly at bedtime as needed for sleep for up to 30 days. 30 Capsule 5 12/27/19 25 Active hydrOXYzine HCL (ATARAX) 50 mg tablet Take 1 Tablet by mouth 2 (two) times daily as needed for anxiety for up to 30 days. 60 Tablet 5 12/27/19 25 Active lithium carbonate 300 mg capsule Take 1 Capsule by mouth daily for 30 days. 30 Capsule 5 12/27/19 25 Active ARIPiprazole (ABILIFY) 30 mg tablet Take 1 Tablet by mouth once daily for 30 days. 30 Tablet 5 12/27/19 25 Active benztropine (COGENTIN) 1 mg tablet Take 1 Tablet by mouth 2 (two) times daily for 30 days. 60 Tablet 5 12/27/19 25 Active ARIPiprazole (ABILIFY) 30 mg tablet Take 1 Tablet by mouth once daily for 30 days. 30 Tablet 5 11/27/19 25 Discontinu ed(Reorder (E-Cancel Not Sent)) benztropine (COGENTIN) 1 mg tablet Take 1 Tablet by mouth 2 (two) times daily for 30 days. 60 Tablet 5 11/27/19 25 Discontinu ed(Reorder (E-Cancel Not Sent)) hydrOXYzine HCL (ATARAX) 50 mg tablet Take 1 Tablet by mouth 2 (two) times daily as needed for anxiety for up to 30 days. 60 Tablet 5 11/27/19 25 Discontinu ed(Reorder (E-Cancel Not Sent)) hydrOXYzine pamoate (VISTARIL) 100 mg capsule Take 1 Capsule by mouth nightly at bedtime as needed for sleep for up to 30 days. 30 Capsule 5 11/27/19 25 Discontinu ed(Reorder (E-Cancel Not Sent)) lithium carbonate 300 mg capsule Take 1 Capsule by mouth daily for 30 days. 30 Capsule 5 11/27/19 25 Discontinu ed(Reorder (E-Cancel Not Sent)) Active Problems Problem Noted Date Diagnosed Date Chronic nonintractable headache 04/20/2024 Mild persistent asthma 02/10/2024 Generalized anxiety disorder with panic attacks [...] day P: not ready to quite Schizophrenia 07/19/2023 Assessment & Plan (11/26/2024 1:00 PM EDT): Assessment: Schizophrenia spectrum disorder with active medication non-adherence secondary to poor insight, side effect profile, and maladaptive illness attribution. Complex trauma history contributing to treatment resistance. Housing instability and legal involvement require clinical stability. Plan: Patient declined restarting medications but education provided without coercion. Will readdress at follow-up in two weeks to reassess willingness and monitor for emerging symptoms. New psychotherapy referral requested. Assessment & Plan (10/22/2024 1:56 PM EDT): [...] Encounters Date Type Department Care Team Description 11/26/2024 12:00 PM EDT Behavioral Health Visit [facility] [address] [place] [phone] Priscilla Bashir APRN 10/22/2024 1:45 PM EDT Behavioral Health Visit [facility] [address] [place] [phone] Priscilla Bashir APRN 10/01/2024 2:00 PM EDT Behavioral Health Visit [facility] [address] [place] [phone] Priscilla Bashir APRN from Last 3 Months [...] Upcoming Encounters Date Type Department Care Team ([facility] st Contact Info) Description 12/10/2024 12:30 PM EDT Case Management Visit [facility] [address] [place] [phone] AngelitoiPriscilla, ELECTRICIAN SUPERVISOR SUBSTATION [address] [facility] [place] [address] Health Maintenance Due Date Last Done Comments [...] Drug Screen 02/12/2024 Depression Annual Screen 02/12/2024 [id number] ( - season) 2024 Imm-Influenza (#1) 2024 02/07/2024 Lipid Screening 10/20/2024 10/21/2023 Diabetes Screening 09/14/2025 09/14/2024 HIV Screening Completed 10/21/2023, 10/21/2023 Hepatitis C Screening Completed 10/21/2023 Imm-Hepatitis B Completed 12/02/2023, 10/23/2023 Insurance [facility]
--- OUTSIDE RECORDS SUMMARY | 2024-12-09 06:57 | XMS_ITS | Clinical Summary ---
Author Organization [facility] Address [address] [place] [address] Phone Care Team Providers Care Concrete Paver Name Role Phone Physician, No Pcp Primary [...] Health Maintenance Due Date Last Done Comments Colorectal Cancer Screening: Colonoscopy 1969 DTaP,Tdap,and Td Vaccines (1 - Tdap) 1988 Hepatitis B Vaccines (1 of 3 - 19+ 3-dose series) 1988 Pneumococcal Vaccine: 50+ Ye ars (1 of 1 - PCV) 10/07/2019 Zoster Vaccines (1 of 2) 10/07/2019 Depression Screening 02/12/2024 Cholesterol Screening (Lipid Panel) 06/27/2024 HIV Screening 06/27/2024 Hepatitis C Screening [...] to complete this topic Insurance MEDICAID - [place] Care Teams Concrete Paver Relationship Specialty Start Date End Date Physician, No Pcp PCP - General 06/27/24
--- OUTSIDE RECORDS SUMMARY | 2024-12-09 06:57 | XMS_ITS | Encounter Summary ---
Author Organization [employer] Address [address] [facility] 7t [place] [address] Care Team Providers Care Grain And Yeast Plants Supervisor Name Role Phone Ely Sánchez MD Primary Care Provider [phone] Encounter Details Date Type Department Care Team (Late st Contact Info) Description 12/02/2023 Orders Only [facility] [address] [place] [address] Katrin Lieberman RN Encounter for immunization Social [...] Description 01/04/2025 1:30 PM EST Office Visit [facility] [address] [place] [address] Jairo Valenzuela MD [address] [place] [address] 02/22/2025 2:00 PM EST Office Visit [facility] [address] [place] [phone] Ely Sánchez MD [address] [place] [phone] documented as of this encounter Visit Diagnoses Diagnosis Encounter for immunization documented in this encounter Additional Health Concerns Assessment Noted Time PHQ-9 Depression Total Score: 21 024 1:23 PM EDT documented as of this encounter Care Teams Grain And Yeast Plants Supervisor Relationship Specialty Start Date End Date Ely Sánchez MD [address] [place] [phone] PCP - General Family Medicine 10/21/23 documented as of this encounter
--- OUTSIDE RECORDS SUMMARY | 2024-12-09 06:57 | XMS_ITS | Clinical Summary ---
Author Organization [facility] Address [address] [place] [address] Phone Care Team Providers Care Central Supply Clerk Name Role Phone Pcp, Unknown Primary Care Provider Unavailabl e Allergies No known active allergies Medications * This document contains information received from the source organization and may not represent a complete record from that organization. nicotine (NICODERM CQ) 21 mg/[address] 1 patch onto the skin daily. If insomnia, remove at bedtime 28 patch 1 4 Active benztropine (COGENTIN) 1 MG tablet Take 1 tablet (1 mg total) by mouth nightly at bedtime. 14 tablet 1 4 Active gabapentin (NEURONTIN) 300 MG capsule Take 2 capsules (600 mg total) by mouth nightly at bedtime. 28 capsule 4 Active lithium (LITHOBID) 300 MG ER tablet Take 2 tablets (600 mg total) by mouth nightly at bedtime. 14 tablet 1 4 Active cholecalciferol (VITAMIN D3) 25 MCG (1,000 unit) tablet Take 1 tablet (1,000 Units total) by mouth daily. 14 tablet 1 4 Active hydrOXYzine (ATARAX) 50 MG tablet Take 1 tablet (50 mg total) by mouth 2 (two) times a day as needed for anxiety. 28 tablet 1 4 Active melatonin 10 mg Tab Take 1 tablet (10 mg total) by mouth nightly at bedtime. 14 tablet 1 4 Active OLANZapine (ZYPREXA ZYDIS) 5 MG disintegrating tablet Take 1 tablet (5 mg total) by mouth 2 (two) times a day as needed (agitation or psychosis). 28 tablet 1 Active Active Problems Problem Noted Date Diagnosed Date Schizophrenia 09/14/2023 Verbal auditory hallucinations 09/13/2023 Hallucinations 09/13/2023 Social History Tobacco Use Types Packs/Day Years Used Date Smoking Tobacco: Every Day Cigarettes Smokeless Tobacco: Never Alcohol Use Standard Drinks/Week Comments Not Currently 0 (1 standard drink = 0.6 oz pur e alcohol) Education Answer Date Recorded Are you interested in more education? Not on ravi e 09/13/2023 Are you concerned about learning? Not on file 09/13/2023 No 09/13/2023 No 09/13/2023 Digital Access Answer Date Recorded No 09/13/2023 No 09/13/2023 Reliable internet access at home? Not on file 09/13/2023 Device with a working camera? Not on file Intimate Partner Violence Answer Date R ecorded Are you denied basic needs s uch as food, clothing, or medical care? No 09/14/2023 In the past 12 months have y ou been in a relationship with a person who hurts, threatens, or tries to control you? No 09/14/2023 Are you denied basic needs s uch as food, clothing, or medical care? No 09/14/2023 In the past 12 months have y ou been in a relationship with a person who hurts, threatens, or tries to control you? No 09/14/2023 Comments Unknown Sex and Gender Information Value Date Recorded Sex Assigned at Unknown 09/13/2023 4:19 PM EDT Legal Sex Male 3:39 PM EDT Gender Identity Male 09/13/2023 4:19 PM EDT Sexual Orientation Don't know 09/13/2023 4: 19 PM EDT Last Filed Vital Signs Vital Sign Reading Time Taken Comments Blood Pressure 105/62 09/24/2023 7:44 AM EDT Pulse 65 09/24/2023 7:44 AM EDT Temperature 36.6 C (97.9 F) 09/24/2023 7:44 AM EDT Respiratory Rate 16 09/24/2023 7:44 AM EDT Oxygen Saturation 98% 09/24/2023 7:44 AM EDT Inhaled Oxygen Concentration - - Weight 78.9 kg (174 lb) 09/18/2023 12:00 PM EDT Height 177.8 cm (5' 10 ) 09/14/2023 2:25 PM EDT Body Mass Index 24.97 09/14/2023 2:25 PM EDT Plan of Treatment Health Maintenance Due Date Last Done Comments Adult Td,Tdap Booster 1969 DEPRESSION SCREENING 1981 SMOKING Hx and SMOKELESS TOBACCO SCREENING 1982 HEPATITIS C SCREENING 10/07/1987 HIV ONE-TIME SCREENING (18-6 5 YEARS) 10/07/1987 PNEUMOCOCCAL VACCINES (50+ years) (1 of 2 - PCV) 1988 COLOGUARD 2014 COLONOSCOPY 2014 COLORECTAL CANCER SCREENING 2014 FIT TEST 2014 FOBT 2014 SIGMOIDOSCOPY 2014 VIRTUAL COLONOSCOPY 2014 ZOSTER VACCINES (1 of 2) 10/07/2019 INFLUENZA VACCINE (#1) 2024 CREATININE LEVEL 09/12/2024 09/13/2023 TSH LEVEL 09/14/2024 09/15/2023 LITHIUM LEVEL 09/15/2024 09/16/2023, 09/13/2023 COVID-19 VACCINE (1 - 2024-2 6 season) 2024 LIPID PANEL 09/14/2028 09/15/2023 RSV VACCINE (1 - 1-dose 75+ series) 2044 HEPATITIS A VACCINES Aged Out No long er eligible based on patient's age to complete this topic HIB VACCINES Aged Out No longer eligi ble based on patient's age to complete this topic MENINGOCOCCAL VACCINES (ACWY) Aged Out No longer eligible based on patient's age to complete this topic MENINGOCOCCAL VACCINES (B) Aged Out N o longer eligible based on patient's age to complete this topic Medical Devices Not on file Procedures Procedure Name Priority Date/Time Associated Diagnosis Comments LITHIUM LEVEL Timed 09/16/2023 1:18 PM EDT LIPID PANEL Routine 09/15/2023 6:48 AM EDT TSH WITH REFLEX Routine 09/15/2023 6:48 AM EDT BASIC METABOLIC PANEL STAT 09/13/2023 4:37 PM EDT from Last 3 Months or Most Recently Relevant to Health Maintenance Results * [place] level (09/16/2023 1:18 PM EDT) LITHIUM 0.52 0.5 - 1.00 mmol/L [facility] Blood 09/16/2023 1:18 PM EDT 09/16/2023 1:31 PM EDT Cheikh Tg Ceballos PMHNP-BC LAB BLOOD ORDERABLES Pia l Result Performing Organization Address City/[facility]/ZIP Co de Phone Number [address] [address] * TSH with reflex (09/15/2023 6:48 AM EDT) Pathologist [facility] TSH 1.13 0.27 - 4.20 uIU/mL [facility] Blood 09/15/2023 6:48 AM EDT 09/15/2023 7:22 AM EDT Cheikh Tg Omnicademy PMHNP- LAB BLOOD ORDERABLES Pia l Result Performing Organization Address [facility]/ZIP Co de Phone Number [address] [address] * Lipid panel (09/15/2023 6:48 AM EDT) HDL 37 mg/dL [facility] Comment: Interpretation <40 mg/dL: Low HDL cholesterol (major risk factor for CHD) Greater than or equal to 60 mg/dL: High HDL cholesterol ( negative risk factor for CHD) HDL - cholesterol is affected by a number of factors, e.g. smoking, excerise, hormones, sex and age. CHOLESTEROL 128 0 - 240 mg/dL [facility] TRIGLYCERIDES 67 30 - 160 mg/dL [facility] LDL 78 50 - 129 mg/dL [facility] Comment: LDL levels in terms of risk for coronary heart disease: <100 mg/dL: Optimal 100-129 mg/dL: Near or above optimal 130-159 mg/dL: Borderline high 160-189 mg/dL: High >190 mg/dL: Very High CARDIAC RISK RATIO 3.5 3.4 - 5.0 C [facility] Blood 09/15/2023 6:48 AM EDT 09/15/2023 7:23 AM EDT us Cheikh Ceballos [facility]- LAB BLOOD ORDERABLES Pia l Result [address] [address] * (ABNORMAL) Basic metabolic panel (09/13/2023 4:37 PM EDT) SODIUM 138 133 - 146 mmol/L [facility] CHLORIDE 102 96 - 108 mmol/L [facility] POTASSIUM 5.0 3.3 - 5.1 mmol/L [facility] CO2 28 21 - 35 mmol/L [facility] BUN 14 6 - 19 mg/dL [facility] CREATININE 1.00 0.5 - 1.5 mg/dL [facility] GLUCOSE 100(H) 70 - 99 mg/dL [facility] CALCIUM 9.5 8.4 - 10.3 mg/dL [facility] EGFR 90 >59 mL/min/1.7 3m2 [facility] Comment:Estimated glomerular filtration rate calculated using the CKD-EPI refit equation. ANION GAP 13 10 - 20 mmol/L [facility] Blood 09/13/2023 4:37 PM EDT 09/13/2023 4:40 PM EDT us Kin Song MD LAB BLOOD ORDERABLES Final Result Performing Organization Address [facility]/ZIP Co de Phone Number [address] [address] from Last 3 Months or Most Recently Relevant to Health Maintenance Insurance C3 ACO C3 ACO C3 ACO C3 ACO C3 ACO C[employer] [id number] Advance Directives For more information, please contact: [phone] (9AM - 5PM [place]/[facility], Saturday-Saturday) * Full Code (Latest Code Status on File) Date Activated Date Inactivated Comments 09/14/2023 2:28 PM Question Answer Comments Code Status Confirmed With: Patient Care Teams Central Supply Clerk Relationship Specialty Start Date End Date Pcp, Unknown PCP - General 09/13/23 Additional Source Comments The information contained in this document represents components of the legal health record. It is not the complete legal health record.[facility]
--- OUTSIDE RECORDS SUMMARY | 2024-12-09 06:57 | XMS_ITS | Encounter Summary ---
Author Organization [employer] Address [address] [place] [address] 7t [place] [address] Care Team Providers Care Comber Operator Name Role Phone Ely Sánchez MD Primary Care Provider Reason for Referral * Consultation (Routine) - Closed Specialty Diagnoses / Procedures Referred By Willian joseph Referred To Contact Gastroenterology Diagnoses Physical exam Screening for colon cancer Ely Sánchez MD [address] [place] [phone] Phone: tel: fax: [facility] [address] [place] [address] 2nd Floor [place], [place] Phone: tel: fax: Referral ID Status Reason Start Date Expiration Date V isits Requested Visits Authorized [id number] Closed Specialty Services Required 09/02/2024 09/02/2025 6 6 Encounter Details Date Type Department Care Team (Late st Contact Info) Description 09/02/2024 Orders Only [facility] MED[facility] [address] [place] [address] Ely Sánchez MD [address] [place], [place] [phone] Physical exam (Primary Dx); Screening for colon [...] Office Visit [facility] [address] [place] [phone] Jairo Valenzuela MD [address] [place] [phone] 02/22/2025 2:00 PM EST Office Visit [facility] [address] [place] [phone] Ely Sánchez MD [address] [place] [address] Scheduled Referrals Name Type Priority Associated Diagnoses Order Schedule Referral to Gastroenterology Outpatient Referral Routine Physical exam Screening for colon cancer Expected: 09/02/2024 (Approximate), Expires: 09/02/2025 documented as of this encounter Procedures Procedure Name Priority Date/Time Associated Diagnosis Comments T-SPOT(R).TB Routine 09/14/2024 4:02 PM EDT Physical exam documented in this encounter Results * T-SPOT??.TB (09/14/2024 4:02 PM EDT) T Spot TB Negative Negative [facility] Comment:A negative test resu lt does [...] as aquantitative test. TS PANEL A 0 [facility] TS PANEL B 0 [facility] Negative Control Passed [facility] Positive Control Passed [facility] Comment:For additional infor mation, please refer tohttp://education.[employer]/faq/AAJ740(This link is being provided for informational/educational purposes only.)THIS TEST WAS PERFORMED AT:[employer] [id number] [place] [address]NSDYBUACORNEL WHARTON MD,PHD 09/14/2024 4:02 PM EDT 09/14/2024 4:02 PM EDT us Ely Sánchez MD LAB BLOOD ORDERABLES Final Res ult [facility] [address] [place] [phone] documented in this encounter Visit Diagnoses Diagnosis Physical exam- Primary Unspecified general medical examination Screening for colon cancer Special screening for malignant neoplasms, colon documented in this encounter Additional Health Concerns Assessment Noted Time PHQ-9 Depression Total Score: 20 025 1:18 PM EDT documented as of this encounter Care Teams Comber Operator Relationship Specialty Start Date End Date Ely Sánchez MD [address] [place] [phone] PCP - General Family Medicine 10/21/23 documented as of this encounter
--- OUTSIDE RECORDS SUMMARY | 2024-12-09 06:57 | XMS_ITS | Clinical Summary ---
Author Organization [employer] Address [address] [facility] 7t [place] [address] Care Team Providers Care Loan Associate Name Role Phone Ely Sánchez MD Primary Care Provider [phone] Allergies No known active allergies Medications * [...] muscle. Active albuterol 108 (90 Base) MCG/ACT inhalerIndication s:Mild persistent asthma, unspecified whether complicated Inhale 2 puffs every 4 (four) hours if needed for wheezing. 18 g 11 024 2024 Active Arnuity Ellipta 100 MCG/ACT inhaler INHALE 1 PUFF BY MOUTH EVERY DAY AT THE SAME TIME RINSE MOUTH AFTER USING. RINSE MOUTH AFTER USING.. DO NOT SWALLOW. 30 each 11 024 Active hydrocortisone (Anusol-HC) 2.5 % rectal creamIndications: Rectal bleeding Insert into the rectum 2 times daily. 28 g 3 025 Active docusate sodium (Colace) 100 MG capsuleIndication s:Uncomplicated opioid dependence (CMS/HCC) ([facility]) Take 1 capsule (100 mg) by mouth if needed in the morning and at bedtime for constipation. 180 capsule 3 025 Active buprenorphine-nal oxone (Suboxone) 4-1 MG per sublingual filmIndications:U ncomplicated opioid dependence (CMS/HCC) ([facility]) Place 1 Film under the tongue Once per day. 28 Film 2 025 Active senna (Senokot) 8.6 MG tablet TAKE 2 TABLETS BY MOUTH EVERY DAY AT BEDTIME 180 tablet 1 025 Active Buprenorphine HCl-Naloxone HCl (Suboxone) 8-2 MG SL filmIndications:U ncomplicated opioid dependence (CMS/HCC) ([facility]) Place 1 Film under the tongue Once per day. 28 Film 1 025 2024 Active Bisacodyl EC 5 MG EC tablet TAKE 1 TABLET BY MOUTH ONCE DAILY NEEDED FOR CONSTIPATION DO NOT BREAK, CRUSH, DISSOLVE OR CHEW 90 tablet 1 025 Active bisacodyl (Dulcolax) 5 MG EC tablet Take 1 tablet (5 mg) by mouth if needed each day for constipation. Do not crush, chew, or split. 30 tablet 3 025 2024 Discontinued Active Problems Problem Noted Date Diagnosed Date [...] (02/10/2024 10:44 AM EST): On Suboxone at [facility] Provider Dr. Valenzuela Assessment & [...] recurrent major depressive disorder, with psychotic features ([facility]/HCC) 09/03/2023 Generalized anxiety disorder with panic attacks [...] (02/10/2024 10:45 AM EST): Continue Abilify injections, Belt His sister will picker feeder other psych medications today Reviewed CRISIS and [...] had psychiatry services while being incarcerated in [place] and carries a diagnosis of Schizophrenia. Then, he was transferred to [place] but didn't have a treatment plan to [...] had psychiatry services while being incarcerated in [place] and carries a diagnosis of Schizophrenia. Then, he was transferred to [place] but didn't have a treatment plan to [...] Encounters Date Type Department Care Team Description 11/09/2024 Refill [facility] MEDICINE [address] [place] [address] Jairo Valenzuela MD 11/04/2024 Refill [facility] [address] [place] [address] Katrin Lieberman RN Uncomplicated opioid dependence ([facility]) 11/02/2024 Refill [facility]INE [address] [place] [address] Jairo Valenzuela MD Uncomplicated opioid dependence ([facility]) 10/16/2024 Orders Only [facility] MEDICINE [address] [place] [address] Katrin Lieberman RN Uncomplicated opioid dependence ([facility]) 10/16/2024 Orders Only [facility] MEDICINE [address] [place] [address] Katrin Lieberman RN 09/14/2024 Orders Only GENERIC EXTERNAL DATA DEPARTMENT Provider, Generic External Data 09/10/2024 Refill [facility] MEDICINE [address] [place] [address] Jairo Valenzuela MD from Last 3 Months Immunizations Immunization Administration [...] Description 01/04/2025 1:30 PM EST Office Visit [facility] MEDICINE [address] [place] [phone] Jairo Valenzuela MD [address] [place] [phone] 02/22/2025 2:00 PM EST Office Visit [facility]ICINE [address] [place] [address] [phone] Ely Sánchez MD [address] [place] [phone] Health Maintenance Due Date Last Done Comments [...] Routine 09/14/2024 4:02 PM EDT Physical exam HEPATITIS C AB W/REFL TO HCV RNA, [...] EDT) Vitamin D, 25-OH, D2 <4 ng/mL [facility] Comment:This test was develo ped and its analytical performancecharacteristics have been determined by [facility] [place], [place]. It hasnot been cleared or approved by the U.S. Food and DrugAdministration. This assay has been validated pursuantto the CLIA regulations and is used for clinicalpurposes.THIS TEST WAS PERFORMED AT:[employer] [id number] [place] [address]RLVNYDNCORNEL WHARTON MD,PHD Vitamin D, 25-OH, D3 19 ng/mL [facility] Comment:This test was develo ped and its analytical performancecharacteristics have been determined by [facility] [place], [place]. It hasnot been cleared or approved by the U.S. Food and DrugAdministration. This assay has been validated pursuantto the CLIA regulations and is used for clinicalpurposes. Vitamin D, 25-OH, Total 19(A) 30 - 100 ng/mL [facility] Comment:Vitamin D, 25-Hydrox y reports concentrations [...] = 30 ng/mL.For additional information, please refer tohttp://education.[employer]/faq/GZH669(This link is being provided for informational/educational purposes only.) 09/14/2024 4:02 PM EDT 09/14/2024 4:02 PM EDT Generic External Data Provider LAB BLOOD ORDERAB LES Final Result Performing Organization Address [facility] Co de Phone Number [facility] [address] [place] [phone] * Vitamin B12 (Cobalamin) and Folate Panel, Serum (09/14/2024 4:02 PM EDT) [facility] Vitamin B12 288 200 - 900 pg/mL [facility] Comment:NORMAL 200-900 PG/ML INDETERMINATE 160-199 PG/ML DEFICIENT < 160 PG/ML Folate 7.2 > or = 4.0 ng/mL [facility] Comment:Reference Values:> o r = 4.0 ng/mL< 4.0 ng/mL suggests folate deficiency Methotrexate, aminopterin and folinic acid(leucovorin) are chemotherapeutic agents whose molecularstructures are similar to folate; therefore, the Architectfolate assay cannot be used for patients using these drugs. 09/14/2024 4:02 PM EDT 09/14/2024 4:02 PM EDT [employer] External Data Provider LAB BLOOD ORDERAB LES Final Result Performing Organization Address [facility] de Phone Number [facility] [address] [place] [phone] * T-SPOT??.TB (09/14/2024 4:02 PM EDT) [facility] T Spot TB Negative Negative [facility] Comment:A negative test resu lt does [...] as aquantitative test. TS PANEL A 0 [facility] TS PANEL B 0 [facility] Negative Control Passed [facility] Positive Control Passed [facility] Comment:For additional infor mation, please refer tohttp://education.[employer]/faq/SAG961(This link is being provided for informational/educational purposes only.)THIS TEST WAS PERFORMED AT:[employer] [id number] [place] [address]XXOTELS W. MASON,MD,PHD 09/14/2024 4:02 PM EDT 09/14/2024 4:02 PM EDT us Ely Sánchez MD LAB BLOOD ORDERABLES Final Res ult Performing Organization Address [facility]/ZIP Co de Phone Number [facility] [address] [place] [phone] * TSH with Reflex to Free T4 (09/14/2024 4:02 PM EDT) TSH reflex Free T4 0.67 0.32 - 4.0 uIU/mL [facility] 09/14/2024 4:02 PM EDT 09/14/2024 4:02 PM EDT us Generic External Data Provider LAB BLOOD ORDERAB LES Final Result Performing Organization Address [facility]/ZIP Co de Phone Number [facility] [address] [place] [phone] * (ABNORMAL) CBC (09/14/2024 4:02 PM EDT) [facility] White Blood Count 6.7 4.8 - 10.8 X10*3/uL [facility] Red Blood Count 4.82 4.60 - 5.80 X10*6/uL [facility] Hemoglobin 12.9(L) 14.0 - 18.0 g/dl [facility] Hematocrit 39.7(L) 42.0 - 52.0 % [facility] Mean Corpuscular Volume 82.4 80.0 - 98.0 fL [facility] Mean Corpuscular Hemoglobin 26.8(L) 27.0 - 33.0 pg [facility] Mean Corpuscular HGB Conc 32.5 31.0 - 36.0 g/dl [facility] Red Cell Distribution Width 12.0 11.0 - 16.0 % [facility] Platelet Count 292 160 - 400 X10*3/uL [facility] Mean Platelet Volume 10.3 9.4 - 12.4 fL [facility] NRBC Pct Auto 0.0 0.0 - 0.2 /100WBC [facility] NRBC Abs Auto 0.000 0.0 - 0.012 X10*3/uL [facility] 09/14/2024 4:02 PM EDT 09/14/2024 4:02 PM EDT us Generic External Data Provider LAB BLOOD ORDERAB LES Final Result [facility] [address] [place] [phone] * (ABNORMAL) Comprehensive Metabolic Panel (09/14/2024 4:02 PM EDT) [facility] Sodium 141 135 - 145 mmol/L [facility] Potassium 4.0 3.3 - 5.1 mmol/L [facility] Chloride 108 96 - 108 mmol/L [facility] Carbon Dioxide 26 22 - 29 mmol/L [facility] Anion Gap 11(L) 12 - 20 [facility] Urea Nitrogen (BUN) 11 9 - 16 mg/dL [facility] Creatinine, Serum 1.04 0.5 - 1.4 mg/dL [facility] Estimated Glomerular Filt Rate >60 [facility] Comment:Chronic Kidney Disea se: Estimated GFR < 60 mL/min/[id number] Kidney Disease: Estimated GFR < 15 mL/min/1.73m2 Glucose 94 60 - 115 mg/dL [facility] Calcium 9.2 8.4 - 10.2 mg/dL [facility] Bilirubin, Total 0.4 0.0 - 1.0 mg/dL [facility] Aspartate Amino Transferase 34 5 - 37 U/L [facility] Alanine Aminotransferase 28 0 - 40 U/L [facility] Total Protein 6.7 6.5 - 8.0 g/dL [facility] Albumin Level 4.4 3.5 - 5.0 g/dL [facility] Alkaline Phosphatase 76 39 - 117 U/L [facility] 09/14/2024 4:02 PM EDT 09/14/2024 4:02 PM EDT us Generic External Data Provider LAB BLOOD ORDERAB LES Final Result Performing Organization Address [facility] de Phone Number [facility] [address] [place] [phone] * Hepatitis C Antibody with Reflex to HCV, RNA, Quantitative, Real-Time PCR (10/21/2023 1:51 PM EDT) Hepatitis C Antibody Nonreactive Nonreactive [facility] Comment:Antibodies to HCV no t detected; does not exclude early acuteHCV infection. Blood Venous blood specimen / Unknown 10/21/2023 1:51 PM EDT 10/21/2023 4:28 PM EDT us Jairo Valenzuela MD LAB BLOOD ORDERABLES Final Resul t Performing Organization Address [facility] Co de Phone Number [facility] [address] [place] [phone] * HIV-1/2 Antigen and Antibodies, Fourth Generation, with Reflexes (10/21/2023 1:51 PM EDT) Pathologist [facility] HIV AB/AG Nonreactive Nonreactive [facility] Comment:HIV-1 p24 Ag and/or HIV-1/HIV-2 Ab not detected.A test result that is nonreactive does not exclude thepossibility of exposure to or infection with HIV-1 and/orHIV-2. Nonreactive results in this assay for individualswith prior exposure to HIV-1 and/or HIV-2 may be due toantigen and antibody levels that are below the limit ofdetection of this assay.The Docebo HIV Ag/Ab Combo assay result andsupplemental assay results should be interpreted inconjunction with the patient's clinical presentation,history and other laboratory results. If the results areinconsistent with clinical evidence, additional testing issuggested to confirm the result. Blood Venous blood specimen / Unknown 10/21/2023 1:51 PM EDT 10/21/2023 4:28 PM EDT us Jairo Valenzuela MD LAB BLOOD ORDERABLES Final Resul t [facility] [address] [place] [phone] [phone] * (ABNORMAL) Lipid Panel, Standard (10/21/2023 1:51 PM EDT) Pathologist [facility] Triglycerides 104 <150 mg/dL [facility] Comment:Desirable Triglyceri de: less than 150 mg/dLBorderline High Triglyceride 150-199 mg/dLHigh Triglyceride: 200-499 mg/dLVery High Triglyceride: greater than or equal to 5OO mg/dL Cholesterol 147 <200 mg/dL [facility] Comment:Desirable Cholestero l: less than 200 mg/dLBorderline High Cholesterol: 200-239 mg/dLHigh Cholesterol: greater than 239 mg/dL LDL Cholesterol Calculated 87 <100 mg/dL [facility] Comment:Desirable LDL: less than 100 mg/dLNear Optimal/Above Optimal LDL: 110- 129 mg/dLBorderline High LDL: 130-159 mg/dLHigh LDL: 160-189 mg/dLVery High LDL: greater than or equal to 190 mg/dL HDL Cholesterol 40(L) >40 mg/dL [facility] Comment:Desirable HDL: great er than 40 mg/dL Note: This HDL assay may give artificially low results in patients with liver disease. Blood Venous blood specimen / Unknown 10/21/2023 1:51 PM EDT 10/21/2023 4:28 PM EDT us Ely Sánchez MD LAB BLOOD ORDERABLES Final Res ult [facility] [address] [place] [phone] from Last 3 Months or Most Recently Relevant to Health Maintenance Insurance [facility] C3 Care Teams Loan Associate Relationship Specialty Start Date End Date Ely Sánchez MD [address] [place] [phone] PCP - General Family Medicine 10/21/23
[2024-12-09 08:24] LABS: Blood Urea Nitrogen 12 mg/dL (9-16); Estimated Glomerular Filt Rate > 60
[2024-12-09] MEDS: iohexoL 350 MG/ML 100 ML INFUS..BTL IV (08:59)
[2024-12-09] MEDS: Barium Sulfate Oral (Mocha) 450 ML ORAL.SUSP 900 ML PO (09:00)
== END 2024-12-09 06:54 | disposition home or self-care (01) ==
LOC: HO.CT 06:53
PROVIDERS: PCP General Practice; Visit Provider Nurse Practitioner Family
DX: R10.11 Right upper quadrant pain (principal)
CPT/HCPCS: 36415; 74177; 82565; 84520; Q9967

== ENCOUNTER → 2024-12-09 07:06 | Outpatient (BNV) | payer MEDICAID, SELFPAY | PROVIDERS: PCP General Practice; Visit Provider Student in an Organized Health Care Education/Training Program | DX: R10.9 Unspecified abdominal pain (principal) | CPT/HCPCS: 74177 ==

== ENCOUNTER 2025-01-27 10:34 | Outpatient (AMB) | payer MEDICAID, SELFPAY ==
--- NOTE | 2025-01-27 10:38 | MHC.OFFVIS ---
Vital Signs 01/27/25 10:39 Height 5 ft 10 in Weight 192 lb BMI 27.5 BP 118/72 Blood Pressure Location Rt brachial Position Sitting Pulse 70 Pulse Source Pulse Oximeter Pulse Oximetry (%) 95 Oxygen Delivery Method Room Air Intake Visit Reasons: discuss colo Intake Note: Est pt for mgmt of constipation. CC; Pt denies any current GI sx or concerns. Reports he is taking linzess PRN and does OK with this regimen. Air Saw Operator Required: No Accompanied by: Self / Same As Patient Allergies No Known Allergies Allergy (Verified 01/27/25 10:38) HPI HPI discuss colo: Details: LAST VISIT Chronic constipation Postprandial abdominal bloating Plan Patient reports abdominal pain will order CT scan. Currently abdomen not tender. Patient reports severe abdominal pain couple weeks ago. Patient will continue taking Linzess. Increase fluid intake and activity to promote better bowel motility. Patient will start to take simethicone as needed. I will see him in 3 months. We will discuss going for colonoscopy. Patient is agreeable to this plan and verbalizes understanding of instructions. He was given the opportunity to ask questions and all questions answered. ? Thank you for allowing me to participate in his care Orders CT abdomen pelvis w IV con Today R10.9 Blood Urea Nitrogen Today R10.11 Creatinine Today R10.11 New simethicone 125 mg PO BID-QID PRN 120 caps 3RF abdominal distention TODAY'S VISIT Patient is here today for follow-up and to discuss going for colonoscopy. Patient reports that he is moving his bowels better now. Uses simethicone as needed for bloating. Taking Linzess daily. CT scan of abdomen and pelvis did not show any acute processes. Patient does admit to be feeling better. Denies melena, hematochezia unintentional weight loss Not on any anticoagulation medication. No history of sleep apnea. Last colonoscopy polyps found and recommendation was made for 5 year colonoscopy screening. [facility] Medical History Chronic constipation Anxiety and depression Substance dependency Surgical History S/P colon polypectomy H/O colonoscopy Review of Systems Const Denies weight gain and Denies weight loss ENT Reports no additional complaints, Denies dysphagia and Denies odynophagia Card Reports no additional complaints Resp Reports no additional complaints GI Denies abdominal pain, Denies belching, Denies melena, Denies bloating, Denies change in bowel habits, Denies dysphagia, Denies excessive flatus, Denies dyspepsia, Denies heartburn, Denies diarrhea, Denies loose stools, Denies nausea, Denies odynophagia and Denies vomiting Reports no additional complaints Musc Reports no additional complaints Neuro Reports no additional complaints Psych Reports no additional complaints Endo Reports no additional complaints Physical Exam Vital Signs: Last Vital Signs Pulse 70 01/27/25 10:39 BP 118/72 01/27/25 10:39 Pulse Ox 95 01/27/25 10:39 Oxygen Delivery Method Room Air 01/27/25 10:39 BMI result Body Mass Index 27.5 Const General: healthy appearing, no acute distress and well developed Nutritional Appearance: well nourished Orientation/consciousness: patient oriented x3 Resp Effort & Inspection: normal respiratory effort, able to speak in complete sentences, no tracheal deviation and symmetric chest movement Auscultation: clear to auscultation bilaterally Cardio Rate: regular rate GI Inspection: Yes normal to inspection and No distended Palpation (GI): Soft to palpation, not firm, nontender and No hepatosplenomegaly present Auscultation: normal bowel sounds General: Yes no CVA tenderness Back/Spine/Pelvis Back: no CVA tenderness Skin General skin exam: elasticity normal, turgor normal and dry skin Neuro General: patient oriented x3 Psych Appearance: grossly normal Mental Status: mental status grossly normal Results Reviewed Results Reviewed: CT SCAN OF ABDOMEN AND PELVIS Findings: Lower thorax: Bibasilar dependent atelectasis. Liver: No focal lesions. No biliary ductal dilatation. Patent portal vein. Gallbladder: Noninflamed gallbladder. Spleen: Normal Pancreas: No solid mass or main duct dilation. Adrenal glands: 10 mm left adrenal nodule (series 3, image 24). Thickening of the right adrenal gland without a discrete nodule. Kidneys: No hydronephrosis, solid mass, or stones. Pelvic organs: Normal Peritoneum and Gastrointestinal: No bowel obstruction, pneumoperitoneum, or ascites. Noninflamed appendix. Lymph nodes: No lymphadenopathy. Vessels: Atherosclerosis. Bones and soft tissues: Degenerative disc disease at L5-S1. IMPRESSION: No acute CT findings of the abdomen or pelvis. Incidental 10 mm left adrenal gland nodule is nonspecific on this exam. Recommend a dedicated CT/MR adrenal protocol study for further characterization. Assessment & Plan Assessment & Plan (1) Chronic constipation: Code(s): K59.09 - Other constipation Category: Medical (2) Postprandial abdominal bloating: Code(s): R14.0 - Abdominal distension (gaseous) (3) Screen for colon cancer: Code(s): Z12.11 - Encounter for screening for malignant neoplasm of colon Plan Patient will continue Linzess daily. Increase fluid intake and activity to promote bowel motility. Patient denies any issues with anesthesia in the past. No history of sleep apnea. Not on any anticoagulation medication. Denies any cardiac or respiratory symptoms. What to expect before during and after procedure discussed with patient. Stressed importance of good bowel prep day before procedure. I will see patient after the procedure, sooner on as needed basis. Thank you for allowing to participate in his care Orders: Referrals GI Procedure Notification Z12.11 - Encounter for screening for malignant neoplasm of colon Medications: New polyethylene glycol 3350 (Miralax) As directed by gastro[facility]ology department at [facility] 238 grams PO ONCE 238 grams 0RF Z12.11 - Encounter for screening for malignant neoplasm of colon bisacodyl (Dulcolax (bisacodyl)) take 4 tabs at noon the day before your colonoscopy 20 mg (4 x 5 mg) PO ONCE 4 tabs 0RF constipation 1 day Z12.11 - Encounter for screening for malignant neoplasm of colon Coding Level of Care Code Est Pt Level 3 (84577) Diagnoses Chronic constipation K59.09 Postprandial abdominal bloating R14.0 Screen for colon cancer Z12.11 Time Spent (min) 30 Comment 20 minutes spent with patient and additional 10 minutes spent reviewing his records
[2025-01-27 10:39] VITALS: BP 118/72; PULSE 70; O2SAT 95; BMI 27.5
--- OUTSIDE RECORDS SUMMARY | 2025-01-27 13:14 | XMS_ITS | Clinical Summary ---
Author Organization [facility] Address [address] [place] [id number] Phone Care Team Providers Care Editor Farm Journal Name Role Phone Pcp, Unknown Primary Care [...] 09/15/2023 6:48 AM EDT BASIC METABOLIC PANEL (BMP) STAT 09/13/2023 4:37 PM EDT from Last 3 Months or Most Recently Relevant to Health Maintenance Results * Merrick level (09/16/2023 1:18 PM EDT) LITHIUM 0.52 0.5 - 1.00 mmol/L [facility] Blood 09/16/2023 1:18 PM EDT 09/16/2023 1:31 PM EDT Cheikh Ceballos PMHNP-BC LAB BLOOD BKR ORDERABLES Final Result Performing Organization Address [facility]/ZIP Co de Phone Number [address] [address] * TSH with reflex (09/15/2023 6:48 AM EDT) TSH 1.13 0.27 - 4.20 uIU/mL [facility] Blood 09/15/2023 6:48 AM EDT 09/15/2023 7:22 AM EDT [facility] B[facility] ORDER[facility] Final Result Performing Organization Address [facility] Co de Phone Number [address] [address] * Lipid panel (09/15/2023 6:48 AM EDT) HDL 37 mg/dL [facility] Comment: Interpretation <40 mg/dL: Low HDL cholesterol (major risk factor for CHD) Greater than or equal to 60 mg/dL: High HDL cholesterol ( negative risk factor for CHD) HDL - cholesterol is affected by a number of factors, e.g. smoking, excerise, hormones, sex and age. CHOLESTEROL 128 0 - 240 mg/dL [facility] TRIGLYCERIDES 67 30 - 160 mg/dL [facility] LDL 78 50 - 129 mg/dL [facility] Comment: LDL levels in terms of risk for coronary heart disease: <100 mg/dL: Optimal 100-129 mg/dL: Near or above optimal 130-159 mg/dL: Borderline high 160-189 mg/dL: High >190 mg/dL: Very High CARDIAC RISK RATIO 3.5 3.4 - 5.0 C [facility] Blood 09/15/2023 6:48 AM EDT 09/15/2023 7:23 AM EDT us Cheikh Ceballos PMHNP- LAB BLOOD BKR ORDERABLES Final Result Performing Organization Address City/[facility]/ZIP Co de Phone Number [address] [address] * (ABNORMAL) Basic metabolic panel (09/13/2023 4:37 PM EDT) SODIUM 138 133 - 146 mmol/L [facility] CHLORIDE 102 96 - 108 mmol/L [facility] POTASSIUM 5.0 3.3 - 5.1 mmol/L [facility] CO2 28 21 - 35 mmol/L [facility] BUN 14 6 - 19 mg/dL [facility] CREATININE 1.00 0.5 - 1.5 mg/dL [facility] GLUCOSE 100(H) 70 - 99 mg/dL [facility] CALCIUM 9.5 8.4 - 10.3 mg/dL [facility] EGFR 90 >59 mL/min/1.7 3m2 [facility] Comment:Estimated glomerular filtration rate calculated using the CKD-EPI refit equation. ANION GAP 13 10 - 20 mmol/L [facility] Blood 09/13/2023 4:37 PM EDT 09/13/2023 4:40 PM EDT us Kin Song MD LAB BLOOD BKR ORDERABLES F inal Result [address] [address] from Last 3 Months or Most Recently Relevant to Health Maintenance Insurance C3 ACO C3 ACO C3 ACO C3 ACO Advance Directives For more information, please contact: [phone] (9AM - 5PM [place], Saturday-Saturday) * Full Code (Latest Code Status on File) Date Activated Date Inactivated Comments 09/14/2023 2:28 PM Question Answer Comments Code Status Confirmed With: Patient Care Teams Editor Farm Journal Relationship Specialty Start Date End Date Pcp, Unknown PCP - General 09/13/23 Additional Source Comments The information contained in this document represents components of the legal health record. It is not the complete legal health record.[facility]
--- OUTSIDE RECORDS SUMMARY | 2025-01-27 13:14 | XMS_ITS ---
Author Organization [employer] Address [address] [place] [address] Care Team Providers Care Studio Couch Frame Builder Name Role Phone Ely Sánchez MD Primary Care Provider [phone] Julianna Zuniga RN Unavailable [phone] Lorraine Garner Unavailable [facility] Complex Status:Outreach In Progress (Enrolling) Start date:12/28/2024 Enrollment reason:ADT Feed Overview ED- Pt went to [facility] ED on 12/26/24. . Please outreach to patient. Case Team Name Relationship Phone Lorraine Garner(Responsible Staff) Continued Care and Services Coordination
--- OUTSIDE RECORDS SUMMARY | 2025-01-27 13:14 | XMS_ITS | Encounter Summary ---
Author Organization [employer] Address [address] [facility] [address] [place] [address] Care Team Providers Care Lead Handler Name Role Phone Ely Sánchez MD Primary Care Provider [phone] Julianna Zuniga RN Unavailable [phone] Lorraine Garner Unavailable Encounter Details Date Type Department Care Team (Late st Contact Info) Description 12/02/2023 Orders Only [facility] MEDICINE [address] [place] [address] Katrin Lieberman, BARB Social History Tobacco Use Types Packs/Day Years [...] Care Team (Late st Contact Info) Description 02/01/2025 2:00 PM EST Clinical Support [address] [address] Katrin Lieberman RN 02/22/2025 2:00 PM EST Office Visit [address] [address] Ely Sánchez MD [address] [place] [address] 04/26/2025 1:00 PM EDT Office Visit [address] [address] Jairo Valenzuela MD [address] [place] [address] documented as of this encounter Visit Diagnoses Not on filedocumented in this encounter Additional Health Concerns Assessment Noted Time PHQ-9 Depression Total Score: 21 024 1:23 PM EDT documented as of this encounter Care Teams Lead Handler Relationship Specialty Start Date End Date Ely Sánchez MD [address] [place] [id number] PCP - General Family Medicine 10/21/23 Julianna Zuniga RN [address] [place] [phone] Registered Nurse Family Medicine 12/28/24 Lorraine Garner 12/28/24 documented as of this encounter
--- OUTSIDE RECORDS SUMMARY | 2025-01-27 13:14 | XMS_ITS | Encounter Summary ---
Author Organization [employer] Address [address] [facility] [address] [place] [address] Care Team Providers Care Actuarial Mathematician Name Role Phone Ely Sánchez MD Primary Care Provider [phone] Julianna Zuniga RN Unavailable Lorraine Garner Unavailable Reason for Visit * Reason Onset Date Comments Med Refill 01/27/2025 Encounter Details Date Type Department Care Team (Late st Contact Info) Description 01/27/[address] [facility] MEDICINE [address] [place] [address] Katrin Lieberman, BARB Uncomplicated opioid dependence (CMS/HCC) (HCC) Social History Tobacco Use Types Packs/Day Years [...] Description 02/01/2025 2:00 PM EST Clinical Support [address] [address] Katrin Lieberman RN 02/22/2025 2:00 PM EST Office Visit [address] [address] Ely Sánchez MD [address] [place] [address] 04/26/2025 1:00 PM EDT Office Visit [address] [address] Jairo Valenzuela MD [address] [place] [phone] documented as of this encounter Visit Diagnoses Diagnosis Uncomplicated opioid dependence (CMS/HCC) (HCC) documented in this encounter Additional Health Concerns Assessment Noted Time PHQ-9 Depression Total Score: 20 025 1:18 PM EDT documented as of this encounter Care Teams Actuarial Mathematician Relationship Specialty Start Date End Date Ely Sánchez MD [address] [place] [address] PCP - General Family Medicine 10/21/23 Julianna Zuniga, BARB [address] [place] [phone] Registered Nurse Family Medicine 12/28/24 Lorraine Garner 12/28/24 documented as of this encounter
--- OUTSIDE RECORDS SUMMARY | 2025-01-27 13:14 | XMS_ITS | Clinical Summary ---
Author Organization [employer] Address [address] [facility] 7t [place] [address] Care Team Providers Care Jingle Writer Name Role Phone Ely Sánchez MD Primary Care Provider [phone] Julianna Zuniga RN Unavailable [phone] Lorraine Garner Unavailable Allergies No known active allergies Medications * [...] 100 MG capsuleIndication s:Uncomplicated opioid dependence (CMS/HCC) (HCC) Take 1 capsule (100 mg) by mouth if needed in the morning and at bedtime for constipation. 180 capsule 3 025 Active buprenorphine-nal oxone (Suboxone) 4-1 MG per sublingual filmIndications:U ncomplicated opioid dependence (CMS/HCC) (HCC) Place 1 Film under the tongue Once per day. 28 Film 2 025 Active senna (Senokot) 8.6 MG tablet TAKE 2 TABLETS BY MOUTH EVERY DAY AT BEDTIME 180 tablet 1 025 Active Buprenorphine HCl-Naloxone HCl (Suboxone) 8-2 MG SL filmIndications:U ncomplicated opioid dependence (CMS/HCC) (HCC) Place 1 Film under the tongue Once per day. 28 Film 01/05/20 25 1:37 PM EST 025 2024 Active bisacodyl (Bisacodyl EC) 5 MG EC tablet Take 1 tablet (5 mg) by mouth if needed each day for constipation. Do not crush, chew, or split. 90 tablet 1 025 Active Buprenorphine HCl-Naloxone HCl (Suboxone) 8-2 MG SL filmIndications:U ncomplicated opioid dependence (CMS/HCC) (HCC) Place 1 Film under the tongue Once per day. 28 Film 1 025 2024 Discontinued(R eorder (will not trigger notification to Pharmacy)) Bisacodyl EC 5 MG EC tablet TAKE 1 TABLET BY MOUTH ONCE DAILY NEEDED FOR CONSTIPATION DO NOT BREAK, CRUSH, DISSOLVE OR CHEW 90 tablet 1 025 2024 Discontinued(R eorder (will not trigger [...] (02/10/2024 10:44 AM EST): On Suboxone at [facility] Provider Dr. Valenzuela Assessment & Plan (10/30/2023 [...] recurrent major depressive disorder, with psychotic features (CMS/HCC) 09/03/2023 Generalized anxiety disorder with panic attacks [...] (02/10/2024 10:45 AM EST): Continue Abilify injections, [place] His sister will milk pickup truck driver other psych medications today Reviewed CRISIS and [...] with the community after being released from halfway . During today's consult, Logan reports increase of sxs due to be out of his [facility] medication. He previously had psychiatry services while being incarcerated in [place] and carries a diagnosis of Schizophrenia. Then, he was transferred to [place] but didn't have a treatment plan to follow for MH services. Currently staying with his sister, but family can't provide long-term housing. Due to lack of supports and medication, Logan is showing increase [...] HOSPITAL as needed Pt was self-referred to [facility] for a psychiatry evaluation with options to look into respite if spots are available. Information provided to pt. Housing insecurity 07/19/2023 Assessment & Plan (07/29/2023 10:21 AM EDT): During IB Consult Logan presenting with Altered sensory perception, Unusual thoughts, Trouble processing and with decision making, Difficulty with social interactions, and Difficulty with ADLs, visual and auditory hallucinations; for a period of 18+ mo, for all symptoms in the context of lack of MH services, lack of social support and difficulty reconnecting with the community after being released from halfway . During today's consult, Logan reports increase of sxs due to be out of his pych medication. He previously had psychiatry services while being incarcerated in [place] and carries a diagnosis of Schizophrenia. Then, he was transferred to [place] but didn't have a treatment plan to [...] Encounters Date Type Department Care Team Description 01/27/[address] [facility] [address] [place] [address] [phone] Katrin Lieberman, RN Uncomplicated opioid dependence (CMS/HCC) (HCC) 01/04/2025 1:30 PM EST Office Visit [facility] [address] [place] [address] [phone] Jairo Valenzuela MD Uncomplicated opioid dependence (CMS/HCC) (HCC) (Primary Dx) 01/04/2025 Travel 12/29/[address] [facility] [address] [place] [address] 08285 Katrin Lieberman RN Uncomplicated opioid dependence ([facility]/HCC) ([facility]) 12/28/[address] [facility] [address] [place] [address] 86201 Ely Sánchez MD Care Coordination ([facility]3 [facility] Lorraine Garner telephone call outreach) 12/28/[address] [facility] [address] [place] [address] 39832 Ely Sánchez MD Care Coordination (C3 [facility] Garner chart review) 12/28/[address] [facility] [address] [place] [address] [phone] Ely Sánchez MD Care Management ([facility] -CHART REVIEW ) 12/28/[address] [facility] [address] [place] [address] 06706 Ely Sánchez MD 12/27/[address] [facility] [address] [place] [address] 96157 Jairo Valenzuela MD Uncomplicated opioid dependence ([facility]) ([facility]) 12/09/2024 Orders Only GENERIC EXTERNAL DATA DEPARTMENT Provider, Generic External Data 11/09/[address] [facility] [address] [place] [address] 70412 Jairo Valenzuela MD 11/04/[address] [facility] [address] [place] [address] 72017 Katrin Lieberman RN Uncomplicated opioid dependence ([facility]) 11/02/[address] [facility] [address] [place] [address] 62084 Jairo Valenzuela MD Uncomplicated opioid dependence ([facility]) from Last 3 Months Immunizations Immunization Administration [...] Sign Reading Time Taken Comments Blood Pressure 110/61 01/04/2025 1:10 PM EST Pulse 64 01/04/2025 1:10 PM EST Temperature 36.7 C (98.1 F) 01/04/2025 1:10 PM EST Respiratory Rate 16 01/04/2025 1:10 PM EST Oxygen Saturation 97% 03/27/2024 1:23 PM EST Inhaled Oxygen Concentration - - Weight 85.3 kg (188 lb 0.6 oz) 01/04/2025 1:10 P M EST Height 177.8 cm (5' 10 ) 03/27/2024 1:23 PM EST Body Mass Index 26.98 03/27/2024 1:23 PM EST Plan of Treatment Upcoming Encounters Date Type Department Care Team (Late st Contact Info) Description 02/01/2025 2:00 PM EST Clinical Support [address] [address] Katrin Lieberman RN 02/22/2025 2:00 PM EST Office Visit [address] [phone] Ely Sánchez MD [address], [place] [phone] 04/26/2025 1:00 PM EDT Office Visit [address] [phone] Jairo Valenzuela MD [address] [place] [phone] Health Maintenance Due Date Last Done Comments CT Colonography 1969 Colonoscopy 1969 Colorectal Cancer Screening 1969 FIT DNA/Cologuard 1969 FIT 1969 FOBT 1969 Sigmoidoscopy 1969 Disability Screening 1969 DTaP/Tdap/Td Vaccines (1 - Tdap) 1988 Pneumococcal Vaccine: 50+ Years (1 of 2 - PCV) 1988 RSV Patients and Patients Aged 60 years or older (1 - Risk 50-74 years 1-dose series) 10/07/2019 Zoster Vaccines (1 of 2) 10/07/2019 COVID-19 Vaccine (1 - 2024-2 6 season) 2024 Influenza Vaccine (#1) 2024 02/07/2024 SDOH Screening 10/20/2024 10/21/2023 Depression Monitoring 12/31/2024 06/30/2024 , 06/30/2024 Alcohol/Substance Use Screening 02/06/2025 02/07/2024 Tobacco Screening 01/04/2026 01/04/2025 Lipid Panel 10/20/2028 10/21/2023 HIV Screening Completed 10/21/2023 Hepatitis C Screening [...] Comments POCT DAVID-14 URINE DRUG SCREEN Routine 01/04/2025 1:11 PM EST Uncomplicated opioid dependence (CMS/HCC) (HCC) CT ABDOMEN PELVIS W CONTRAST Routine 12/09/2024 6:13 PM EDT CREATININE, SERUM Routine 12/09/2024 7:0 1 AM EDT UREA NITROGEN (BUN) Routine 12/09/2024 7 :01 AM EDT HEPATITIS C AB W/REFL TO HCV RNA, QN, PCR Routine 10/21/2023 1:51 PM EDT Uncomplicated opioid dependence (CMS/HCC) HIV 1/2 ANTIGEN/ANTIBODY, FOURTH GENERATION W/RFL Routine 10/21/2023 1:51 PM EDT Uncomplicated opioid dependence (CMS/HCC) LIPID PANEL, STANDARD Routine 10/21/2023 1:51 PM EDT Routine physical examination from Last 3 Months or Most Recently Relevant to Health Maintenance Results * (ABNORMAL) POCT DAVID-14 Urine Drug Screen (01/04/2025 1:11 PM EST) THC Negative Negative Cocaine Screen, Urine Negative Negative Opiate Screen, Urine Negative Negative Methamphetamine Screen Urine Negative Negative Amphetamine Screen, Urine Negative Negative Benzodiazepines Screen, Urine Negative Negative Barbiturate Screen, Urine Negative Negative Methadone Screen, Urine Negative Negative Buprenophine Screen, Urine Positive(A) Negative TCA, Urine Negative Negative MDMA Urine Negative Negative ng/mL Oxycodone Screen, Urine Negative Negative Propoxyphene, Urine Negative Negative Fentanyl, Urine Negative Negative Urine Urine specimen obtained by clean catch procedure / Unknown 01/04/2025 1:11 PM EST Jairo Valenzuela MD POINT OF CARE TEST ENTER/EDIT OR DERABLES Final Result * CT Abdomen Pelvis w/ Contrast (12/09/2024 6:13 PM EDT) Anatomical Region Laterality Modality Body, Pelvis, Abdomen Computed T omography 12/09/2024 6:13 PM EDT Narrative 12/09/2024 6:15 PM EDT [place] [id number] CT Scan Report Signed Patient: Logan Beal MR#: [id number] : 1970 Acct:[id number] Age/Sex: 54 / M ADM Date: 12/09/24 Loc: HO.CT Attending Dr: Claudia Mc [facility] Ordering Physician: Claudia Mc [facility] Date of Service: 12/09/24 Procedure(s): CT abdomen pelvis w IV con Accession Number(s): [id number] cc: Ely Sánchez; Claudia Mc [facility] Report Number: [id number]: Total DLP = 463.00 mGy-cm Reason for Exam: R10.9 - Unspecified abdominal pain CLINICAL HISTORY: R10.9 - Unspecified abdominal pain CT abdomen and pelvis with contrast Comparison: None provided Findings: Lower thorax: Bibasilar dependent atelectasis. Liver: No focal lesions. No biliary ductal dilatation. Patent portal vein. Gallbladder: Noninflamed gallbladder. Spleen: Normal Pancreas: No solid mass or main duct dilation. Adrenal glands: 10 mm left adrenal nodule (series 3, image 24). Thickening of the right adrenal gland without a discrete nodule. Kidneys: No hydronephrosis, solid mass, or stones. Pelvic organs: Normal Peritoneum and Gastrointestinal: No bowel obstruction, pneumoperitoneum, or ascites. Noninflamed appendix. Lymph nodes: No lymphadenopathy. Vessels: Atherosclerosis. Bones and soft tissues: Degenerative disc disease at L5-S1. IMPRESSION: No acute CT findings of the abdomen or pelvis. Incidental 10 mm left adrenal gland nodule is nonspecific on this exam. Recommend a dedicated CT/MR adrenal protocol study for further characterization. This document has been electronically signed by: Danna Parnell MD on 12/09/2024 18:13:55 Dictated By: Danna Parnell MD Signed By: <Electronically signed by Danna Parnell MD in OV> 12/09/241814 DD/ 12 TD/TT: 12/09/241812 Well Puller Head: Procedure Note Donotuseinterpreter, Image - 12/09/[address] [place] [address] [address] Scan Report Signed Patient: Logan Beal#: [id number] : 1970Acct:[id number] Age/Sex: 54 / MADM Date: 12/09/24 Loc: HO.CT Attending Dr: Claudia Mc [facility] Ordering Physician: Claudia McEVITA Date of Service: 12/09/24 Procedure(s): CT abdomen pelvis w IV con Accession Number(s): [id number] cc: Ely Sánchez; Claudia Mc [facility] Report Number: [id number]: Total DLP = 463.00 mGy-cm Reason for Exam: R10.9 - Unspecified abdominal pain CLINICAL HISTORY: R10.9 - Unspecified abdominal pain CT abdomen and pelvis with contrast Comparison: None provided Findings: Lower thorax: Bibasilar dependent atelectasis. Liver: No focal lesions. No biliary ductal dilatation. Patent portal vein. Gallbladder: Noninflamed gallbladder. Spleen: Normal Pancreas: No solid mass or main duct dilation. Adrenal glands: 10 mm left adrenal nodule (series 3, image 24). Thickening of the right adrenal gland without a discrete nodule. Kidneys: No hydronephrosis, solid mass, or stones. Pelvic organs: Normal Peritoneum and Gastrointestinal: No bowel obstruction, pneumoperitoneum, or ascites. Noninflamed appendix. Lymph nodes: No lymphadenopathy. Vessels: Atherosclerosis. Bones and soft tissues: Degenerative disc disease at L5-S1. IMPRESSION: No acute CT findings of the abdomen or pelvis. Incidental 10 mm left adrenal gland nodule is nonspecific on this exam. Recommend a dedicated CT/MR adrenal protocol study for further characterization. This document has been electronically signed by: Danna Parnell MD on 12/09/2024 18:13:55 Dictated By: Danna Parnell MD Signed By: <Electronically signed by Danna Parnell MD in OV> 12/09/241814 DD/ 12 TD/TT: 12/09/241812 Well Puller Head: [facility] External Provider IMG CT PROCEDURES Final Result * Creatinine, Serum (12/09/2024 7:01 AM EDT) Creatinine, Serum 1.19 0.5 - 1.4 mg/dL [facility] Estimated Glomerular Filt Rate >60 [facility] Comment:Chronic Kidney Disea se: Estimated GFR < 60 mL/min/1.92c7Vxlgyp Kidney Disease: Estimated GFR < 15 mL/min/1.73m2 12/09/2024 7:01 AM EDT 12/09/2024 7:01 AM EDT Generic External Data Provider LAB BLOOD ORDERAB LES Final Result [facility] [address] [place] [address] [phone] * BUN (Blood Urea Nitrogen) (12/09/2024 7:01 AM EDT) Urea Nitrogen (BUN) 12 9 - 16 mg/dL [facility] 12/09/2024 7:01 AM EDT 12/09/2024 7:01 AM EDT us Generic External Data Provider LAB BLOOD ORDERAB LES Final Result Performing Organization Address [facility]/ZIP Co de Phone Number [facility] [address] [place] [phone] * Hepatitis C Antibody with Reflex to HCV, RNA, Quantitative, Real-Time PCR (10/21/2023 1:51 PM EDT) Hepatitis C Antibody Nonreactive Nonreactive [facility] Comment:Antibodies to HCV no t detected; does not exclude early acuteHCV infection. Blood Venous blood specimen / Unknown 10/21/2023 1:51 PM EDT 10/21/2023 4:28 PM EDT Jairo Valenzuela MD LAB BLOOD ORDERABLES Final Resul t Performing Organization Address [facility] Co de Phone Number [facility] [address] [place] [phone] * HIV-1/2 Antigen and Antibodies, Fourth Generation, with Reflexes (10/21/2023 1:51 PM EDT) HIV AB/AG Nonreactive Nonreactive [facility] Comment:HIV-1 p24 Ag and/or HIV-1/HIV-2 Ab not detected.A test result that is nonreactive does not exclude thepossibility of exposure to or infection with HIV-1 and/orHIV-2. Nonreactive results in this assay for individualswith prior exposure to HIV-1 and/or HIV-2 may be due toantigen and antibody levels that are below the limit ofdetection of this assay.The [employer] HIV Ag/Ab Combo assay result andsupplemental assay results should be interpreted inconjunction with the patient's clinical presentation,history and other laboratory results. If the results areinconsistent with clinical evidence, additional testing issuggested to confirm the result. Blood Venous blood specimen / Unknown 10/21/2023 1:51 PM EDT 10/21/2023 4:28 PM EDT us Jairo Valenzuela MD LAB BLOOD ORDERABLES Final Resul t Performing Organization Address [facility]/ZIP Co de Phone Number [facility] [address] [place] [address] [phone] * (ABNORMAL) Lipid Panel, Standard (10/21/2023 1:51 PM EDT) Triglycerides 104 <150 mg/dL [facility] Comment:Desirable Triglyceri de: less than 150 mg/dLBorderline High Triglyceride 150-199 mg/dLHigh Triglyceride: 200-499 mg/dLVery High Triglyceride: greater than or equal to 5OO mg/dL Cholesterol 147 <200 mg/dL [facility] Comment:Desirable Cholestero l: less than 200 mg/dLBorderline High Cholesterol: 200-239 mg/dLHigh Cholesterol: greater than 239 mg/dL LDL Cholesterol Calculated 87 <100 mg/dL [facility] Comment:Desirable LDL: less than 100 mg/dLNear Optimal/Above Optimal LDL: 110- 129 mg/dLBorderline High LDL: 130-159 mg/dLHigh LDL: 160-189 mg/dLVery High LDL: greater than or equal to 190 mg/dL HDL Cholesterol 40(L) >40 mg/dL [facility] Comment:Desirable HDL: great er than 40 mg/dL Note: This HDL assay may give artificially low results in patients with liver disease. Blood Venous blood specimen / Unknown 10/21/2023 1:51 PM EDT 10/21/2023 4:28 PM EDT us Ely Sánchez MD LAB BLOOD ORDERABLES Final Res ult Performing Organization Address City/[facility]/ZIP Co de Phone Number [facility] [address] [place] [phone] from Last 3 Months or Most Recently Relevant to Health Maintenance [place] [address] [place] [address] C3 Care Teams Jingle Writer Relationship Specialty Start Date End Date Ely Sánchez MD [address] [place] [address] PCP - General Family Medicine 10/21/23 Julianna Zuniga RN [address] [place] [address] Registered Nurse Family Medicine 12/28/24 Lorraine Garner 12/28/24
--- OUTSIDE RECORDS SUMMARY | 2025-01-27 13:14 | XMS_ITS | Encounter Summary ---
Author Organization [employer] Address [address] [facility] 7t [place] [address] Care Team Providers Care Industrial Psychology Teacher Name Role Phone Ely Sánchez MD Primary Care Provider [phone] Julianna Zuniga RN Unavailable [phone] Lorraine Garner Unavailable Reason for Referral * Consultation (Routine) - Closed Specialty Diagnoses / Procedures Referred By Contac t Referred To Contact Gastroenterology Diagnoses Physical exam Screening for colon cancer Ely Sánchez MD [address] [place] [phone] Phone: tel: fax: [facility] [address] [place] [address] [place] [address] Phone: tel: fax: Referral ID Status Reason Start Date Expiration Date V isits Requested Visits Authorized [id number] Closed Specialty Services Required 09/02/2024 09/02/2025 6 6 Encounter Details Date Type Department Care Team (Late st Contact Info) Description 09/02/2024 Orders Only [facility] [address] [place] [phone] Ely Sánchez MD [address] [place], [place] [phone] Physical exam (Primary Dx); Screening for colon [...] Description 02/01/2025 2:00 PM EST Clinical Support [facility] [address] [place] [address] Katrin Lieberman RN 02/22/2025 2:00 PM EST Office Visit [facility] [address] [place] [address] Ely Sánchez MD [address] [place] [phone] 04/26/2025 1:00 PM EDT Office Visit [facility] [address] [facility] [place] [address] Jairo Valenzuela MD [address] [place] [address] Scheduled Referrals Name Type Priority Associated Diagnoses Order Schedule Referral to Gastroenterology Outpatient Referral Routine Physical exam Screening for colon cancer Expected: 09/02/2024 (Approximate), Expires: 09/02/2025 documented as of this encounter Procedures Procedure Name Priority Date/Time Associated Diagnosis Comments T-SPOT(R).TB Routine 09/14/2024 4:02 PM EDT Physical exam documented in this encounter Results * T-SPOT??.TB (09/14/2024 4:02 PM EDT) T Spot TB Negative Negative [facility] Comment:A negative test resu [...] as aquantitative test. TS PANEL A 0 [facility] TS PANEL B 0 [facility] Negative Control Passed [facility] Positive Control Passed [facility] Comment:For additional infor nyla, please refer [email or web address]/faq/ZGW744(This link is being provided for informational/educational purposes only.)THIS TEST WAS PERFORMED AT:[employer] [id number] [place] [id number] WHARTON MD,PHD 09/14/2024 4:02 PM EDT 09/14/2024 4:02 PM EDT Ely Sánchez MD LAB BLOOD ORDERABLES Final Res ult [facility] [address] [place] [phone] documented in this encounter Visit Diagnoses Diagnosis Physical exam- Primary Unspecified general medical examination Screening for colon cancer Special screening for malignant neoplasms, colon documented in this encounter Additional Health Concerns Assessment Noted Time PHQ-9 Depression Total Score: 20 025 1:18 PM EDT documented as of this encounter Care Teams Industrial Psychology Teacher Relationship Specialty Start Date End Date Ely Sánchez MD [address] [place] [phone] PCP - General Family Medicine 10/21/23 Julianna Zuniga, BARB [address] [place] [phone] Registered Nurse Family Medicine 12/28/24 Lorraine Garner 12/28/24 documented as of this encounter
--- OUTSIDE RECORDS SUMMARY | 2025-01-27 13:14 | XMS_ITS | Encounter Summary ---
Author Organization [employer] Address [address] [facility] 7t [place] [address] Care Team Providers Care Acetone Button Paster Name Role Phone Ely Sánchez MD Primary Care Provider [phone] Julianna Zuniga RN Unavailable [phone] Lorraine Garner Unavailable Reason for Visit * Reason Comments Med Refill Encounter Details Date Type Department Care Team (Late st Contact Info) Description 12/27/2024 Refill [facility] [address] [place], [place] [phone] Jairo Valenzuela MD [address] [place], [place] [phone] Uncomplicated opioid dependence (CMS/HCC) (HCC) Social History [...] your housing situation today? I have zak sing 10/02/[address] you li [...] Description 02/01/2025 2:00 PM EST Clinical Support [address] [address] Katrin Lieberman RN 02/22/2025 2:00 PM EST Office Visit [address] [address] Ely Sánchez MD [address] [place] [phone] 04/26/2025 1:00 PM EDT Office Visit [address] [address] Jairo Valenzuela MD [address] [place] [phone] documented as of this encounter Visit Diagnoses Diagnosis Uncomplicated opioid dependence (CMS/HCC) (HCC) documented in this encounter Additional Health Concerns Assessment Noted Time PHQ-9 Depression Total Score: 20 025 1:18 PM EDT documented as of this encounter Care Teams Acetone Button Paster Relationship Specialty Start Date End Date Ely Sánchez MD [address] [place] [phone] PCP - General Family Medicine 10/21/23 Julianna Zuniga RN [address] [place] [address] [phone] Registered Nurse Family Medicine 12/28/24 Lorraine Garner 12/28/24 documented as of this encounter
--- OUTSIDE RECORDS SUMMARY | 2025-01-27 13:14 | XMS_ITS | Encounter Summary ---
Author Organization [employer] Address [address] [facility] 7t [place] [address] Care Team Providers Care Resident Medical Officer Name Role Phone Ely Sánchez MD Primary Care Provider [phone] Julianna Zuniga RN Unavailable [phone] Lorraine Garner Unavailable Reason for Visit * Reason Comments Med Refill Encounter Details Date Type Department Care Team (Late st Contact Info) Description 11/02/2024 Refill [facility] MEDICINE [address] [place], [place] [phone] Jairo Valenzuela MD [address] [place], [place] [phone] Uncomplicated opioid dependence (CMS/HCC) Social History Tobacco [...] your housing situation today? I have zak mastres 10/02/[address] you li [...] Description 02/01/2025 2:00 PM EST Clinical Support [address] [address] Katrin Lieberman RN 02/22/2025 2:00 PM EST Office Visit [address] [address] Ely Sánchez MD [address] [place] [phone] 04/26/2025 1:00 PM EDT Office Visit [address] [address] Jairo Valenzuela MD [address] [place] [phone] documented as of this encounter Visit Diagnoses Diagnosis Uncomplicated opioid dependence (CMS/HCC) (HCC) documented in this encounter Additional Health Concerns Assessment Noted Time PHQ-9 Depression Total Score: 20 025 1:18 PM EDT documented as of this encounter Care Teams Resident Medical Officer Relationship Specialty Start Date End Date Ely Sánchez MD [address] [place] [phone] PCP - General Family Medicine 10/21/23 Julianna Zuniga RN [address] [place] [phone] Registered Nurse Family Medicine 12/28/24 Lorraine Garner 12/28/24 documented as of this encounter
--- OUTSIDE RECORDS SUMMARY | 2025-01-27 13:14 | XMS_ITS | Clinical Summary ---
Author Organization [facility] Address [address] [place] [address] Phone Care Team Providers Care Gin Pole Operator Name Role Phone Physician, No Pcp Primary [...] on file Sexual Orientation Not on file Last Filed Vital Signs Vital Sign Reading [...] Health Screening 06/27/2024 COVID-19 Vaccine (1 - 2024-2 6 season) 2024 Influenza Vaccine (#1) 2024 RSV [...] topic Insurance MEDICAID - [place] Care Teams Gin Pole Operator Relationship Specialty Start Date End Date Physician, No Pcp PCP - General 06/27/24
--- OUTSIDE RECORDS SUMMARY | 2025-01-27 13:14 | XMS_ITS | Encounter Summary ---
Author Organization [employer] Address [address] [facility] 7t [place] [address] Care Team Providers Care Medical Collector Name Role Phone Ely Sánchez MD Primary Care Provider [phone] Julianna Zuniga RN Unavailable [phone] Lorraine Garner Unavailable Encounter Details Date Type Department Care Team (Late st Contact Info) Description 10/16/2024 Orders Only [facility] MEDICINE [address] [place] [address] Katrin Lieberman, BARB Social History Tobacco Use [...] Description 02/01/2025 2:00 PM EST Clinical Support [address] [address] Katrin Lieberman RN 02/22/2025 2:00 PM EST Office Visit [address] [address] Ely Sánchez MD [address] [place] [phone] 04/26/2025 1:00 PM EDT Office Visit [address] [address] Jairo Valenzuela MD [address] [place] [address] documented as of this encounter Visit Diagnoses Not on filedocumented in this encounter Additional Health Concerns Assessment Noted Time PHQ-9 Depression Total Score: 20 025 1:18 PM EDT documented as of this encounter Care Teams Medical Collector Relationship Specialty Start Date End Date Ely Sánchez MD [address] [place] [phone] PCP - General Family Medicine 10/21/23 Julianna Zuniga RN [address] [place] [phone] Registered Nurse Family Medicine 12/28/24 Lorraine Garner 12/28/24 documented as of this encounter
--- OUTSIDE RECORDS SUMMARY | 2025-01-27 13:14 | XMS_ITS | Encounter Summary ---
Author Organization [employer] Address [address] [facility] 7t [place] [address] Care Team Providers Care Cloth Finishing Range Back Tender Name Role Phone Ely Sánchez MD Primary Care Provider [phone] Julianna Zuniga RN Unavailable [phone] Lorraine Garner Unavailable Encounter Details Date Type Department Care Team (Late st Contact Info) Description 12/02/2023 Orders Only [facility] MEDICINE [address] [place] [address] Katrin Lieberman, BARB Encounter for immunization Social History Tobacco Use Types Packs/Day Years Used Date Smoking Tobacco: Former Cigarettes Passive Smoke Exposure: Current Smokeless Tobacco: Never Alcohol Use Standard Drinks/Week Comments Never 0 (1 standard drink = 0.6 oz pur e alcohol) Depression Answer Date Recorded Patient Health Questionnaire-9 Score 10/21/2023 Patient Health Questionnaire-9 Score 21 10/21/2023 [...] Description 02/01/2025 2:00 PM EST Clinical Support [address] [address] Katrin Lieberman RN 02/22/2025 2:00 PM EST Office Visit [address] [address] Ely Sánchez MD [address] [place] [address] 04/26/2025 1:00 PM EDT Office Visit [address] [address] Jairo Valenzuela MD [address] [place] [address] documented as of this encounter Visit Diagnoses Diagnosis Encounter for immunization documented in this encounter Additional Health Concerns Assessment Noted Time PHQ-9 Depression Total Score: 21 024 1:23 PM EDT documented as of this encounter Care Teams Cloth Finishing Range Back Tender Relationship Specialty Start Date End Date Ely Sánchez MD [address] [place] [phone] PCP - General Family Medicine 10/21/23 Julianna Zuniga RN [address] [place] [address] Registered Nurse Family Medicine 12/28/24 Lorraine Garner 12/28/24 documented as of this encounter
--- OUTSIDE RECORDS SUMMARY | 2025-01-27 13:14 | XMS_ITS ---
Author Organization [employer] Address [address] [facility] 7t [place] [address] Care Team Providers Care Chief Media Officer Name Role Phone Ely Sánchez MD Primary Care Provider [phone] Julianna Zuniga RN Unavailable [phone] Lorraine Garner Unavailable CM Complex Status:Outreach In Progress (Enrolling) Start date:12/28/2024 Enrollment reason:ADT Feed Overview ED- Pt went to [facility] ED on 12/26/24. . Case Team Name Relationship Phone Julianna Zuniga RN(Responsible Staff) Registered Nurse Continued Care and Services Coordination
== END 2025-01-27 11:19 | disposition home or self-care (01) ==
LOC: HO.HGI 10:34
PROVIDERS: PCP General Practice; Visit Provider Nurse Practitioner Family
DX: Z01.818 Encounter for other preprocedural examination (principal); Z12.11 Encounter for screening for malignant neoplasm of colon; K59.09 Other constipation; R14.0 Abdominal distension (gaseous)
CPT/HCPCS: 99213

== ENCOUNTER → 2025-01-27 10:34 | Outpatient (BNVA) | payer MEDICAID, SELFPAY | PROVIDERS: PCP General Practice; Visit Provider Nurse Practitioner Family | DX: Z12.11 Encounter for screening for malignant neoplasm of colon (principal); K59.09 Other constipation; R14.0 Abdominal distension (gaseous) | CPT/HCPCS: 99212 ==